=== PATIENT | female | born 1960 | race Caucasian/White ===

== ENCOUNTER → 2016-04-06 | Outpatient (CLI) | payer BC ==
[2016-04-06 13:28] LABS: EOS # 0.1 K/mm3 (0.0-0.50); EOS % 3.3 % (0.0-3.0); LARGE UNSTAINED CELL # 0.1 K/mm3 (0.0-0.4); LARGE UNSTAINED CELL % 2.9 % (0.0-4.0); LYMPH # 0.8 K/mm3 (1.5-4.5); LYMPH % 36.1 % (24.0-44.0); MEAN CORPUSCULAR HEMOGLOBIN 27.2 pg (27.0-33.0); MEAN CORPUSCULAR VOLUME 82.4 fl (80.0-96.0); MONO # 0.1 K/mm3 (0.0-0.8); MONO % 4.9 % (0.0-5.0); NEUTROPHILS # 1.1 K/mm3 (1.8-7.7); NEUTROPHILS % 51.8 % (36.0-66.0); PLATELET COUNT, AUTOMATED 153 k/mm3 (150-450); RED CELL DISTRIBUTION WIDTH 13.7 % (11.5-14.5)
[2016-04-06 13:51] LABS: ALBUMIN 3.8 GM/DL (3.2-5.2); CALCIUM LEVEL 8.6 MG/DL (8.5-10.1); CREATININE FOR GFR 1.23 MG/DL (0.55-1.02); GLOMERULAR FILTRATION RATE 48.3 (>51); PHOSPHORUS LEVEL 3.4 MG/DL (2.5-4.9); POTASSIUM SERUM 4.4 MEQ/L (3.5-5.1)
[2016-04-07 08:07] LABS: WHITE BLOOD COUNT 2.2 K/mm3 (4.0-10.0)
== END ==
LOC: M SMT 09:33
PROVIDERS: ATTEND Internal Medicine Nephrology
DX: Z94.0 Kidney transplant status (principal); N18.3 Chronic kidney disease, stage 3 (moderate)

== ENCOUNTER → 2016-06-01 | Outpatient (CLI) | payer BC ==
[2016-06-01 13:28] LABS: ALBUMIN 3.9 GM/DL (3.2-5.2); CALCIUM LEVEL 8.8 MG/DL (8.5-10.1); CREATININE FOR GFR 1.34 MG/DL (0.55-1.02); GLOMERULAR FILTRATION RATE 43.7 (>51); PHOSPHORUS LEVEL 3.8 MG/DL (2.5-4.9); POTASSIUM SERUM 4.8 MEQ/L (3.5-5.1)
[2016-06-01 14:16] LABS: BASO % 0.3 % (0.0-1.0); EOS # 0.1 K/mm3 (0.0-0.50); LARGE UNSTAINED CELL # 0.1 K/mm3 (0.0-0.4); LARGE UNSTAINED CELL % 4.7 % (0.0-4.0); LYMPH # 1.1 K/mm3 (1.5-4.5); LYMPH % 41.1 % (24.0-44.0); MEAN CORPUSCULAR HEMOGLOBIN 27.4 pg (27.0-33.0); MEAN CORPUSCULAR VOLUME 85.7 fl (80.0-96.0); MONO # 0.2 K/mm3 (0.0-0.8); MONO % 5.9 % (0.0-5.0); NEUTROPHILS # 1.1 K/mm3 (1.8-7.7); PLATELET COUNT, AUTOMATED 178 k/mm3 (150-450); RED CELL DISTRIBUTION WIDTH 12.9 % (11.5-14.5); WHITE BLOOD COUNT 2.5 K/mm3 (4.0-10.0)
== END ==
LOC: M SMT 09:17
PROVIDERS: ATTEND Internal Medicine Nephrology
DX: N18.3 Chronic kidney disease, stage 3 (moderate) (principal); Z94.0 Kidney transplant status

== ENCOUNTER → 2016-07-10 | Outpatient (CLI) | payer BC ==
[2016-07-10 14:41] LABS: ALBUMIN 3.9 GM/DL (3.2-5.2); CALCIUM LEVEL 8.3 MG/DL (8.5-10.1); CREATININE FOR GFR 1.48 MG/DL (0.55-1.02); PHOSPHORUS LEVEL 3.5 MG/DL (2.5-4.9); POTASSIUM SERUM 4.3 MEQ/L (3.5-5.1)
[2016-07-10 14:49] LABS: BASO % 0.2 % (0.0-1.0); EOS % 1.8 % (0.0-3.0); LARGE UNSTAINED CELL # 0.1 K/mm3 (0.0-0.4); LARGE UNSTAINED CELL % 2.7 % (0.0-4.0); LYMPH # 0.8 K/mm3 (1.5-4.5); LYMPH % 34.4 % (24.0-44.0); MEAN CORPUSCULAR HGB CONC 33.5 g/dl (32.0-36.5); MEAN CORPUSCULAR VOLUME 86.6 fl (80.0-96.0); MONO # 0.2 K/mm3 (0.0-0.8); MONO % 6.5 % (0.0-5.0); NEUTROPHILS # 1.2 K/mm3 (1.8-7.7); NEUTROPHILS % 54.5 % (36.0-66.0); PLATELET COUNT, AUTOMATED 146 k/mm3 (150-450); RED CELL DISTRIBUTION WIDTH 13.3 % (11.5-14.5); WHITE BLOOD COUNT 2.3 K/mm3 (4.0-10.0)
== END ==
LOC: M SMT 08:57
PROVIDERS: ATTEND Internal Medicine Nephrology
DX: N18.3 Chronic kidney disease, stage 3 (moderate) (principal); Z94.0 Kidney transplant status

== ENCOUNTER → 2016-09-07 | Outpatient (CLI) | payer BC ==
[2016-09-07 13:29] LABS: ADD MANUAL DIFFER YES; MEAN CORPUSCULAR HEMOGLOBIN 28.5 pg (27.0-33.0); MEAN CORPUSCULAR HGB CONC 33.3 g/dl (32.0-36.5); MEAN CORPUSCULAR VOLUME 85.6 fl (80.0-96.0); PLATELET COUNT, AUTOMATED 172 k/mm3 (150-450); RED CELL DISTRIBUTION WIDTH 12.8 % (11.5-14.5); WHITE BLOOD COUNT 5.1 K/mm3 (4.0-10.0)
[2016-09-07 13:31] LABS: ALBUMIN 3.9 GM/DL (3.2-5.2); CALCIUM LEVEL 8.8 MG/DL (8.5-10.1); CREATININE FOR GFR 1.27 MG/DL (0.55-1.02); GLOMERULAR FILTRATION RATE 46.5 (>51); PHOSPHORUS LEVEL 3.2 MG/DL (2.5-4.9); POTASSIUM SERUM 4.9 MEQ/L (3.5-5.1)
[2016-09-07 13:59] LABS: EOSINOPHILS 1 % (0-5)
== END ==
LOC: M SMT 09:38
PROVIDERS: ATTEND Internal Medicine Nephrology
DX: N18.3 Chronic kidney disease, stage 3 (moderate) (principal); Z94.0 Kidney transplant status

== ENCOUNTER → 2016-10-05 | Outpatient (CLI) | payer BC ==
[2016-10-05 14:27] LABS: ALBUMIN 3.7 GM/DL (3.2-5.2); CALCIUM LEVEL 8.6 MG/DL (8.5-10.1); CREATININE FOR GFR 1.36 MG/DL (0.55-1.02); PHOSPHORUS LEVEL 3.6 MG/DL (2.5-4.9); POTASSIUM SERUM 4.9 MEQ/L (3.5-5.1)
[2016-10-05 14:32] LABS: ADD MANUAL DIFFER YES; DIFF SLIDE NUMBER 154; MEAN CORPUSCULAR HEMOGLOBIN 28.1 pg (27.0-33.0); MEAN CORPUSCULAR VOLUME 85.1 fl (80.0-96.0); PLATELET COUNT, AUTOMATED 183 k/mm3 (150-450); RED CELL DISTRIBUTION WIDTH 12.9 % (11.5-14.5); WHITE BLOOD COUNT 2.6 K/mm3 (4.0-10.0)
[2016-10-05 14:56] LABS: EOSINOPHILS 3 % (0-5)
== END ==
LOC: M SMT 09:48
PROVIDERS: ATTEND Internal Medicine Nephrology
DX: N18.3 Chronic kidney disease, stage 3 (moderate) (principal); Z94.0 Kidney transplant status

== ENCOUNTER → 2016-11-30 | Outpatient (CLI) | payer BC ==
[2016-11-30 16:28] LABS: ALBUMIN 3.7 GM/DL (3.2-5.2); CALCIUM LEVEL 8.6 MG/DL (8.5-10.1); CREATININE FOR GFR 1.29 MG/DL (0.55-1.02); GLOMERULAR FILTRATION RATE 45.7 (>51); PHOSPHORUS LEVEL 2.9 MG/DL (2.5-4.9)
[2016-11-30 16:40] LABS: BASO % 0.7 % (0.0-1.0); EOS # 0.1 K/mm3 (0.0-0.50); EOS % 3.1 % (0.0-3.0); LARGE UNSTAINED CELL # 0.1 K/mm3 (0.0-0.4); LARGE UNSTAINED CELL % 4.3 % (0.0-4.0); LYMPH # 0.9 K/mm3 (1.5-4.5); LYMPH % 38.8 % (24.0-44.0); MEAN CORPUSCULAR HEMOGLOBIN 28.7 pg (27.0-33.0); MEAN CORPUSCULAR HGB CONC 33.8 g/dl (32.0-36.5); MONO # 0.1 K/mm3 (0.0-0.8); MONO % 6.2 % (0.0-5.0); NEUTROPHILS # 1.1 K/mm3 (1.8-7.7); NEUTROPHILS % 46.9 % (36.0-66.0); PLATELET COUNT, AUTOMATED 174 k/mm3 (150-450); RED CELL DISTRIBUTION WIDTH 13.1 % (11.5-14.5); WHITE BLOOD COUNT 2.2 K/mm3 (4.0-10.0)
== END ==
LOC: M SMT 10:03
PROVIDERS: ATTEND Internal Medicine Nephrology
DX: N18.3 Chronic kidney disease, stage 3 (moderate) (principal); Z94.0 Kidney transplant status

== ENCOUNTER → 2017-01-25 | Outpatient (REF) | payer BC ==
[2017-01-25 19:45] LABS: FREE T4 0.97 NG/DL (0.76-1.46)
== END ==
LOC: M LAB REF 12:46
PROVIDERS: ATTEND Internal Medicine Nephrology
DX: Z94.0 Kidney transplant status (principal); E03.9 Hypothyroidism, unspecified

== ENCOUNTER → 2017-03-22 | Outpatient (CLI) | payer BC ==
[2017-03-22 14:00] LABS: BASO % 0.6 % (0.0-1.0); EOS # 0.1 10^3/uL (0.0-0.50); EOS % 2.3 % (0.0-3.0); HEMATOCRIT 36.9 % (36.0-47.0); HEMOGLOBIN 11.9 g/dl (12.0-16.0); IMMATURE GRANULOCYTE % 0.3 % (0-0); LYMPH # 1.8 10^3/uL (1.5-4.5); LYMPH % 52.9 % (24.0-44.0); MEAN CORPUSCULAR HEMOGLOBIN 27.7 pg (27.0-33.0); MEAN CORPUSCULAR HGB CONC 32.2 g/dl (32.0-36.5); MONO # 0.3 10^3/uL (0.0-0.8); MONO % 7.8 % (0.0-5.0); NEUTROPHILS # 1.2 10^3/uL (1.8-7.7); NEUTROPHILS % 36.1 % (36.0-66.0); PLATELET COUNT, AUTOMATED 186 10^3/uL (150-450); RED BLOOD COUNT 4.29 10^6/uL (4.00-5.40); WHITE BLOOD COUNT 3.4 10^3/uL (4.0-10.0)
[2017-03-22 14:08] LABS: APPEARANCE, URINE CLEAR (CLEAR); BACTERIA, URINE AUTO NEGATIVE (NEGATIVE); BILIRUBIN, URINE AUTO NEGATIVE (NEGATIVE); BLOOD, URINE BLOOD NEGATIVE (NEGATIVE); COLOR, URINE YELLOW (YELLOW); GLUCOSE, URINE (UA) AUTO NEGATIVE (NEGATIVE); KETONE, URINE AUTO NEGATIVE (NEGATIVE); LEUKOCYTE ESTERASE, URINE AUTO NEGATIVE (NEGATIVE); NITRITE, URINE AUTO NEGATIVE (NEGATIVE); PROTEIN, URINE AUTO NEGATIVE (NEGATIVE); RBC, URINE AUTO 1 /HPF (0-3); SPECIFIC GRAVITY URINE AUTO 1.017 (1.002-1.035); SQUAMOUS EPITHELIAL CELL UR AU 0 /HPF (0-6); UROBILINOGEN, URINE AUTO 0.2 mg/dL (0.0-2.0); WBC, URINE AUTO 0 /HPF (0-3)
[2017-03-22 14:21] LABS: ALBUMIN 3.8 GM/DL (3.2-5.2); ANION GAP 9 MEQ/L (8-16); BLOOD UREA NITROGEN 31 MG/DL (7-18); CALCIUM LEVEL 8.7 MG/DL (8.5-10.1); CARBON DIOXIDE LEVEL 27 MEQ/L (21-32); CHLORIDE LEVEL 104 MEQ/L (98-107); CREATININE FOR GFR 1.39 MG/DL (0.55-1.02); GLOMERULAR FILTRATION RATE 41.8 (>51); GLUCOSE, FASTING 102 MG/DL (70-105); PHOSPHORUS LEVEL 3.5 MG/DL (2.5-4.9); POTASSIUM SERUM 4.8 MEQ/L (3.5-5.1); SODIUM LEVEL 140 MEQ/L (136-145)
[2017-03-24 10:12] LABS: FK 506 (TACROLIMUS) LABCORP 6.5 ng/mL (2.0-20.0)
== END ==
LOC: M SMT 09:07
DX: Z94.0 Kidney transplant status (principal); N18.3 Chronic kidney disease, stage 3 (moderate)
CPT/HCPCS: 80069

== ENCOUNTER → 2017-04-26 | Outpatient (REF) | payer BC | LOC: M LAB REF 13:15 | DX: Z94.0 Kidney transplant status (principal) ==

== ENCOUNTER → 2017-05-31 | Outpatient (CLI) | payer BC ==
[2017-05-31 17:15] LABS: ALBUMIN 3.6 GM/DL (3.2-5.2); ANION GAP 7 MEQ/L (8-16); BLOOD UREA NITROGEN 25 MG/DL (7-18); CALCIUM LEVEL 8.2 MG/DL (8.5-10.1); CARBON DIOXIDE LEVEL 28 MEQ/L (21-32); CHLORIDE LEVEL 104 MEQ/L (98-107); CREATININE FOR GFR 1.27 MG/DL (0.55-1.30); GLOMERULAR FILTRATION RATE 46.3 (>51); GLUCOSE, FASTING 96 MG/DL (70-100); PHOSPHORUS LEVEL 2.9 MG/DL (2.5-4.9); POTASSIUM SERUM 4.3 MEQ/L (3.5-5.1); SODIUM LEVEL 139 MEQ/L (136-145)
[2017-05-31 17:17] LABS: BASO % 1.1 % (0.0-1.0); EOS # 0.1 10^3/uL (0.0-0.50); EOS % 2.8 % (0.0-3.0); HEMATOCRIT 36.6 % (36.0-47.0); HEMOGLOBIN 11.4 g/dl (12.0-16.0); IMMATURE GRANULOCYTE % 0.4 % (0-3.0); LYMPH # 0.9 10^3/uL (1.5-4.5); LYMPH % 32.9 % (24.0-44.0); MEAN CORPUSCULAR HEMOGLOBIN 26.6 pg (27.0-33.0); MEAN CORPUSCULAR HGB CONC 31.1 g/dl (32.0-36.5); MEAN CORPUSCULAR VOLUME 85.5 fl (80.0-96.0); MONO # 0.2 10^3/uL (0.0-0.8); MONO % 6.7 % (0.0-5.0); NEUTROPHILS # 1.6 10^3/uL (1.8-7.7); NEUTROPHILS % 56.1 % (36.0-66.0); PLATELET COUNT, AUTOMATED 197 10^3/uL (150-450); RED BLOOD COUNT 4.28 10^6/uL (4.00-5.40); RED CELL DISTRIBUTION WIDTH 13.4 % (11.5-14.5); WHITE BLOOD COUNT 2.8 10^3/uL (4.0-10.0)
[2017-05-31 17:33] LABS: APPEARANCE, URINE CLEAR (CLEAR); BACTERIA, URINE AUTO NEGATIVE (NEGATIVE); BILIRUBIN, URINE AUTO NEGATIVE (NEGATIVE); BLOOD, URINE BLOOD NEGATIVE (NEGATIVE); COLOR, URINE STRAW (YELLOW); GLUCOSE, URINE (UA) AUTO NEGATIVE (NEGATIVE); KETONE, URINE AUTO NEGATIVE (NEGATIVE); LEUKOCYTE ESTERASE, URINE AUTO NEGATIVE (NEGATIVE); NITRITE, URINE AUTO NEGATIVE (NEGATIVE); PROTEIN, URINE AUTO NEGATIVE (NEGATIVE); RBC, URINE AUTO 0 /HPF (0-3); SPECIFIC GRAVITY URINE AUTO 1.004 (1.002-1.035); SQUAMOUS EPITHELIAL CELL UR AU 0 /HPF (0-6); UROBILINOGEN, URINE AUTO 0.2 mg/dL (0.0-2.0); WBC, URINE AUTO 0 /HPF (0-3)
[2017-06-03 08:06] LABS: FK 506 (TACROLIMUS) LABCORP 4.8 ng/mL (2.0-20.0)
== END ==
LOC: M SMT 09:05
DX: N18.3 Chronic kidney disease, stage 3 (moderate) (principal); Z94.0 Kidney transplant status
CPT/HCPCS: 80069

== ENCOUNTER → 2017-07-30 | Outpatient (CLI) | payer BC ==
[2017-07-30 14:04] LABS: BASO % 1.1 % (0.0-1.0); EOS # 0.1 10^3/uL (0.0-0.50); EOS % 2.2 % (0.0-3.0); HEMATOCRIT 36.4 % (36.0-47.0); HEMOGLOBIN 11.6 g/dl (12.0-15.5); LYMPH # 0.9 10^3/uL (1.5-4.5); LYMPH % 33.5 % (24.0-44.0); MEAN CORPUSCULAR HEMOGLOBIN 27.2 pg (27.0-33.0); MEAN CORPUSCULAR HGB CONC 31.9 g/dl (32.0-36.5); MEAN CORPUSCULAR VOLUME 85.2 fl (80.0-96.0); MONO # 0.2 10^3/uL (0.0-0.8); MONO % 8.6 % (0.0-5.0); NEUTROPHILS # 1.5 10^3/uL (1.8-7.7); NEUTROPHILS % 54.6 % (36.0-66.0); PLATELET COUNT, AUTOMATED 170 10^3/uL (150-450); RED BLOOD COUNT 4.27 10^6/uL (4.00-5.40); RED CELL DISTRIBUTION WIDTH 13.1 % (11.5-14.5); WHITE BLOOD COUNT 2.7 10^3/uL (4.0-10.0)
[2017-07-30 14:34] LABS: APPEARANCE, URINE CLEAR (CLEAR); BACTERIA, URINE AUTO NEGATIVE (NEGATIVE); BILIRUBIN, URINE AUTO NEGATIVE (NEGATIVE); BLOOD, URINE BLOOD NEGATIVE (NEGATIVE); COLOR, URINE YELLOW (YELLOW); GLUCOSE, URINE (UA) AUTO NEGATIVE (NEGATIVE); KETONE, URINE AUTO NEGATIVE (NEGATIVE); LEUKOCYTE ESTERASE, URINE AUTO NEGATIVE (NEGATIVE); MUCUS, URINE SMALL (NEGATIVE); NITRITE, URINE AUTO NEGATIVE (NEGATIVE); PROTEIN, URINE AUTO NEGATIVE (NEGATIVE); RBC, URINE AUTO 1 /HPF (0-3); SPECIFIC GRAVITY URINE AUTO 1.011 (1.002-1.035); SQUAMOUS EPITHELIAL CELL UR AU 0 /HPF (0-6); UROBILINOGEN, URINE AUTO 0.2 mg/dL (0.0-2.0); WBC, URINE AUTO 0 /HPF (0-3)
[2017-07-30 14:49] LABS: ALBUMIN 3.8 GM/DL (3.2-5.2); ANION GAP 8 MEQ/L (8-16); BLOOD UREA NITROGEN 27 MG/DL (7-18); CALCIUM LEVEL 8.4 MG/DL (8.5-10.1); CARBON DIOXIDE LEVEL 27 MEQ/L (21-32); CHLORIDE LEVEL 104 MEQ/L (98-107); CREATININE FOR GFR 1.39 MG/DL (0.55-1.30); GLOMERULAR FILTRATION RATE 41.8 (>51); GLUCOSE, FASTING 105 MG/DL (70-100); PHOSPHORUS LEVEL 3.4 MG/DL (2.5-4.9); POTASSIUM SERUM 4.4 MEQ/L (3.5-5.1); SODIUM LEVEL 139 MEQ/L (136-145)
[2017-08-01 08:06] LABS: FK 506 (TACROLIMUS) LABCORP 6.1 ng/mL (2.0-20.0)
== END ==
LOC: M SMT 09:05
DX: Z94.0 Kidney transplant status (principal); D63.1 Anemia in chronic kidney disease
CPT/HCPCS: 80069

== ENCOUNTER → 2017-09-17 | Outpatient (CLI) | payer BC ==
[2017-09-17 13:22] LABS: BASO % 1.1 % (0.0-1.0); EOS # 0.1 10^3/uL (0.0-0.50); EOS % 2.7 % (0.0-3.0); HEMATOCRIT 35.3 % (36.0-47.0); HEMOGLOBIN 11.5 g/dl (12.0-15.5); LYMPH # 0.9 10^3/uL (1.5-4.5); LYMPH % 33.3 % (24.0-44.0); MEAN CORPUSCULAR HEMOGLOBIN 27.3 pg (27.0-33.0); MEAN CORPUSCULAR HGB CONC 32.6 g/dl (32.0-36.5); MEAN CORPUSCULAR VOLUME 83.6 fl (80.0-96.0); MONO # 0.2 10^3/uL (0.0-0.8); MONO % 7.7 % (0.0-5.0); NEUTROPHILS # 1.4 10^3/uL (1.8-7.7); NEUTROPHILS % 55.2 % (36.0-66.0); PLATELET COUNT, AUTOMATED 182 10^3/uL (150-450); RED BLOOD COUNT 4.22 10^6/uL (4.00-5.40); RED CELL DISTRIBUTION WIDTH 13.2 % (11.5-14.5); WHITE BLOOD COUNT 2.6 10^3/uL (4.0-10.0)
[2017-09-17 13:32] LABS: APPEARANCE, URINE CLEAR (CLEAR); BACTERIA, URINE AUTO NEGATIVE (NEGATIVE); BILIRUBIN, URINE AUTO NEGATIVE (NEGATIVE); BLOOD, URINE BLOOD NEGATIVE (NEGATIVE); COLOR, URINE YELLOW (YELLOW); GLUCOSE, URINE (UA) AUTO NEGATIVE (NEGATIVE); KETONE, URINE AUTO NEGATIVE (NEGATIVE); LEUKOCYTE ESTERASE, URINE AUTO NEGATIVE (NEGATIVE); NITRITE, URINE AUTO NEGATIVE (NEGATIVE); PROTEIN, URINE AUTO NEGATIVE (NEGATIVE); RBC, URINE AUTO 0 /HPF (0-3); SPECIFIC GRAVITY URINE AUTO 1.009 (1.002-1.035); SQUAMOUS EPITHELIAL CELL UR AU 0 /HPF (0-6); UROBILINOGEN, URINE AUTO 0.2 mg/dL (0.0-2.0); WBC, URINE AUTO 0 /HPF (0-3)
[2017-09-17 13:35] LABS: ALBUMIN 3.8 GM/DL (3.2-5.2); ANION GAP 8 MEQ/L (8-16); BLOOD UREA NITROGEN 31 MG/DL (7-18); CALCIUM LEVEL 8.6 MG/DL (8.5-10.1); CARBON DIOXIDE LEVEL 27 MEQ/L (21-32); CHLORIDE LEVEL 107 MEQ/L (98-107); CREATININE FOR GFR 1.44 MG/DL (0.55-1.30); GLOMERULAR FILTRATION RATE 40.1 (>51); GLUCOSE, FASTING 111 MG/DL (70-100); PHOSPHORUS LEVEL 3.9 MG/DL (2.5-4.9); POTASSIUM SERUM 4.8 MEQ/L (3.5-5.1); SODIUM LEVEL 142 MEQ/L (136-145)
[2017-09-20 00:09] LABS: FK 506 (TACROLIMUS) LABCORP 5.6 ng/mL (2.0-20.0)
== END ==
LOC: M SMT 08:17
DX: Z94.0 Kidney transplant status (principal); D63.1 Anemia in chronic kidney disease
CPT/HCPCS: 80069

== ENCOUNTER → 2018-01-10 | Outpatient (REF) | payer BC ==
[2018-01-10 13:43] LABS: BASO % 0.7 % (0.0-1.0); EOS # 0.1 10^3/uL (0.0-0.50); EOS % 3.4 % (0.0-3.0); HEMATOCRIT 37.2 % (36.0-47.0); HEMOGLOBIN 11.7 g/dl (12.0-15.5); IMMATURE GRANULOCYTE % 0.3 % (0-3.0); LYMPH # 1.3 10^3/uL (1.5-4.5); LYMPH % 43.7 % (24.0-44.0); MEAN CORPUSCULAR HEMOGLOBIN 27.2 pg (27.0-33.0); MEAN CORPUSCULAR HGB CONC 31.5 g/dl (32.0-36.5); MEAN CORPUSCULAR VOLUME 86.5 fl (80.0-96.0); MONO # 0.2 10^3/uL (0.0-0.8); MONO % 7.5 % (0.0-5.0); NEUTROPHILS # 1.3 10^3/uL (1.8-7.7); NEUTROPHILS % 44.4 % (36.0-66.0); PLATELET COUNT, AUTOMATED 180 10^3/uL (150-450); RED CELL DISTRIBUTION WIDTH 13.1 % (11.5-14.5)
[2018-01-10 13:50] LABS: ALBUMIN 3.6 GM/DL (3.2-5.2); ANION GAP 6 MEQ/L (8-16); APPEARANCE, URINE CLEAR (CLEAR); BACTERIA, URINE AUTO NEGATIVE (NEGATIVE); BILIRUBIN, URINE AUTO NEGATIVE (NEGATIVE); BLOOD UREA NITROGEN 22 MG/DL (7-18); BLOOD, URINE BLOOD NEGATIVE (NEGATIVE); CALCIUM LEVEL 8.4 MG/DL (8.5-10.1); CARBON DIOXIDE LEVEL 29 MEQ/L (21-32); CHLORIDE LEVEL 103 MEQ/L (98-107); COLOR, URINE YELLOW (YELLOW); CREATININE FOR GFR 1.46 MG/DL (0.55-1.30); GLOMERULAR FILTRATION RATE 39.5 (>51); GLUCOSE, FASTING 137 MG/DL (70-100); GLUCOSE, URINE (UA) AUTO NEGATIVE (NEGATIVE); KETONE, URINE AUTO NEGATIVE (NEGATIVE); LEUKOCYTE ESTERASE, URINE AUTO NEGATIVE (NEGATIVE); NITRITE, URINE AUTO NEGATIVE (NEGATIVE); PHOSPHORUS LEVEL 3.2 MG/DL (2.5-4.9); POTASSIUM SERUM 4.5 MEQ/L (3.5-5.1); PROTEIN, URINE AUTO NEGATIVE (NEGATIVE); RBC, URINE AUTO 0 /HPF (0-3); SODIUM LEVEL 138 MEQ/L (136-145); SPECIFIC GRAVITY URINE AUTO 1.011 (1.002-1.035); SQUAMOUS EPITHELIAL CELL UR AU 0 /HPF (0-6); UROBILINOGEN, URINE AUTO 0.2 mg/dL (0.0-2.0); WBC, URINE AUTO 0 /HPF (0-3)
[2018-01-12 14:32] LABS: FK 506 (TACROLIMUS) LABCORP 7.1 ng/mL (2.0-20.0)
== END ==
LOC: M LAB REF 13:17
DX: Z94.0 Kidney transplant status (principal); Z48.22 Encounter for aftercare following kidney transplant
CPT/HCPCS: 80069

== ENCOUNTER → 2018-02-14 | Outpatient (CLI) | payer BC ==
[2018-02-14 14:30] LABS: BACTERIA, URINE AUTO NEGATIVE (NEGATIVE); MUCUS, URINE SMALL (NEGATIVE); RBC, URINE AUTO 0 /HPF (0-3); SQUAMOUS EPITHELIAL CELL UR AU 0 /HPF (0-6); WBC, URINE AUTO 0 /HPF (0-3)
[2018-02-14 14:34] LABS: BASO % 1.3 % (0.0-1.0); EOS # 0.1 10^3/uL (0.0-0.50); EOS % 3.4 % (0.0-3.0); HEMATOCRIT 36.8 % (36.0-47.0); HEMOGLOBIN 11.7 g/dl (12.0-15.5); LYMPH # 0.9 10^3/uL (1.5-4.5); MEAN CORPUSCULAR HEMOGLOBIN 27.2 pg (27.0-33.0); MEAN CORPUSCULAR HGB CONC 31.8 g/dl (32.0-36.5); MEAN CORPUSCULAR VOLUME 85.6 fl (80.0-96.0); MONO # 0.2 10^3/uL (0.0-0.8); MONO % 8.4 % (0.0-5.0); NEUTROPHILS # 1.2 10^3/uL (1.8-7.7); NEUTROPHILS % 49.9 % (36.0-66.0); PLATELET COUNT, AUTOMATED 193 10^3/uL (150-450); RED CELL DISTRIBUTION WIDTH 13.2 % (11.5-14.5); WHITE BLOOD COUNT 2.4 10^3/uL (4.0-10.0)
[2018-02-14 14:42] LABS: APPEARANCE, URINE CLEAR (CLEAR); BILIRUBIN, URINE AUTO NEGATIVE (NEGATIVE); BLOOD, URINE BLOOD NEGATIVE (NEGATIVE); COLOR, URINE YELLOW (YELLOW); GLUCOSE, URINE (UA) AUTO NEGATIVE (NEGATIVE); KETONE, URINE AUTO NEGATIVE (NEGATIVE); LEUKOCYTE ESTERASE, URINE AUTO NEGATIVE (NEGATIVE); NITRITE, URINE AUTO NEGATIVE (NEGATIVE); PROTEIN, URINE AUTO NEGATIVE (NEGATIVE); SPECIFIC GRAVITY URINE AUTO 1.011 (1.002-1.035); UROBILINOGEN, URINE AUTO 0.2 mg/dL (0.0-2.0)
[2018-02-15 09:41] LABS: ALBUMIN 3.9 GM/DL (3.2-5.2); ALBUMIN/GLOBULIN RATIO 1.39 (1.00-1.93); ALKALINE PHOSPHATASE 54 U/L (45-117); ALT/SGPT 21 U/L (12-78); ANION GAP 8 MEQ/L (8-16); AST/SGOT 16 U/L (7-37); BILIRUBIN,TOTAL 0.4 MG/DL (0.2-1.0); BLOOD UREA NITROGEN 26 MG/DL (7-18); CALCIUM LEVEL 8.7 MG/DL (8.5-10.1); CARBON DIOXIDE LEVEL 27 MEQ/L (21-32); CHLORIDE LEVEL 101 MEQ/L (98-107); FERRITIN 49 NG/ML (8-252); FREE T4 1.02 NG/DL (0.76-1.46); GLOMERULAR FILTRATION RATE 41.4 (>51); GLUCOSE, FASTING 106 MG/DL (70-100); IRON (FE) 58 UG/DL (50-170); PERCENT SATURATION 23.2 % (13.2-45.0); PHOSPHORUS LEVEL 3.5 MG/DL (2.5-4.9); POTASSIUM SERUM 4.7 MEQ/L (3.5-5.1); SODIUM LEVEL 136 MEQ/L (136-145); TOTAL IRON BINDING CAPACITY 250 UG/DL (250-450); TOTAL PROTEIN 6.7 GM/DL (6.4-8.2)
[2018-02-15 10:18] LABS: CORTISOL AM 16.1 UG/DL (4.3-22.4)
[2018-02-23 00:07] LABS: BK VIRUS BLOOD PCR1 Negative copies/mL (Negative); CMV QUANT DNA PCR (PLASMA) Negative (Negative); FK 506 (TACROLIMUS) LABCORP 8.2 ng/mL (2.0-20.0)
== END ==
LOC: M SMT 08:00
DX: Z48.22 Encounter for aftercare following kidney transplant (principal); Z94.0 Kidney transplant status; D50.9 Iron deficiency anemia, unspecified
CPT/HCPCS: 83550

== ENCOUNTER → 2018-02-14 | Outpatient (CLI) | payer BC ==
[2018-02-14 14:45] LABS: ALBUMIN 3.6 GM/DL (3.2-5.2); ALBUMIN/GLOBULIN RATIO 1.24 (1.00-1.93); ALKALINE PHOSPHATASE 56 U/L (45-117); ALT/SGPT 24 U/L (12-78); ANION GAP 5 MEQ/L (8-16); AST/SGOT 15 U/L (7-37); BILIRUBIN,TOTAL 0.4 MG/DL (0.2-1.0); BLOOD UREA NITROGEN 24 MG/DL (7-18); CALCIUM LEVEL 8.2 MG/DL (8.5-10.1); CARBON DIOXIDE LEVEL 30 MEQ/L (21-32); CHLORIDE LEVEL 102 MEQ/L (98-107); CHOLESTEROL LEVEL 264 MG/DL (<200); FREE T4 1.02 NG/DL (0.76-1.46); GLOMERULAR FILTRATION RATE 41.4 (>51); GLUCOSE, FASTING 101 MG/DL (70-100); HDL CHOLESTEROL 63 MG/DL (>40); IRON (FE) 58 UG/DL (50-170); LDL CHOLESTEROL 176 MG/DL (<100); NON-HDL-C 201 MG/DL; PERCENT SATURATION 24.2 % (13.2-45.0); POTASSIUM SERUM 4.7 MEQ/L (3.5-5.1); SODIUM LEVEL 137 MEQ/L (136-145); TOTAL IRON BINDING CAPACITY 240 UG/DL (250-450); TOTAL PROTEIN 6.5 GM/DL (6.4-8.2); TRIGLYCERIDES LEVEL 125 MG/DL (<150)
[2018-02-15 10:19] LABS: TOTAL 25(OH) VITAMIN D 31.1 NG/ML (30.0-100.0)
[2018-02-15 10:32] LABS: BASO % 1.3 % (0.0-1.0); EOS % 3.4 % (0.0-3.0); HEMATOCRIT 36.8 % (36.0-47.0); HEMOGLOBIN 11.7 g/dl (12.0-15.5); MEAN CORPUSCULAR HEMOGLOBIN 27.2 pg (27.0-33.0); MEAN CORPUSCULAR HGB CONC 31.8 g/dl (32.0-36.5); MEAN CORPUSCULAR VOLUME 85.6 fl (80.0-96.0); MONO % 8.4 % (0.0-5.0); NEUTROPHILS % 49.9 % (36.0-66.0); PLATELET COUNT, AUTOMATED 193 10^3/uL (150-450); RED CELL DISTRIBUTION WIDTH 13.2 % (11.5-14.5); WHITE BLOOD COUNT 2.4 10^3/uL (4.0-10.0)
[2018-02-15 10:33] LABS: EOS # 0.1 10^3/uL (0.0-0.50); LYMPH # 0.9 10^3/uL (1.5-4.5); MONO # 0.2 10^3/uL (0.0-0.8); NEUTROPHILS # 1.2 10^3/uL (1.8-7.7)
== END ==
LOC: M SMT 08:05
DX: Z01.419 Encounter for gynecological examination (general) (routine) without abnormal findings (principal)
CPT/HCPCS: 82306

== ENCOUNTER → 2018-03-14 | Outpatient (REF) | payer BC | LOC: M LAB REF 10:01 | PROVIDERS: ATTEND Internal Medicine Nephrology | DX: Z94.0 Kidney transplant status (principal) ==

== ENCOUNTER → 2018-04-02 | Outpatient (CLI) | payer BC ==
[2018-04-02 10:58] LABS: BASO % 1.3 % (0.0-1.0); EOS # 0.1 10^3/uL (0.0-0.50); EOS % 4.2 % (0.0-3.0); HEMATOCRIT 36.4 % (36.0-47.0); HEMOGLOBIN 11.5 g/dl (12.0-15.5); LYMPH # 0.8 10^3/uL (1.5-4.5); LYMPH % 33.9 % (24.0-44.0); MEAN CORPUSCULAR HEMOGLOBIN 27.1 pg (27.0-33.0); MEAN CORPUSCULAR HGB CONC 31.6 g/dl (32.0-36.5); MEAN CORPUSCULAR VOLUME 85.6 fl (80.0-96.0); MONO # 0.2 10^3/uL (0.0-0.8); MONO % 10.2 % (0.0-5.0); NEUTROPHILS # 1.2 10^3/uL (1.8-7.7); NEUTROPHILS % 50.4 % (36.0-66.0); PLATELET COUNT, AUTOMATED 164 10^3/uL (150-450); RED BLOOD COUNT 4.25 10^6/uL (4.00-5.40); WHITE BLOOD COUNT 2.4 10^3/uL (4.0-10.0)
[2018-04-02 11:03] LABS: ALBUMIN 3.8 GM/DL (3.2-5.2); CALCIUM LEVEL 8.3 MG/DL (8.5-10.1); CREATININE FOR GFR 1.31 MG/DL (0.55-1.30); GLOMERULAR FILTRATION RATE 44.6 (>51); PHOSPHORUS LEVEL 3.3 MG/DL (2.5-4.9); POTASSIUM SERUM 4.5 MEQ/L (3.5-5.1)
[2018-04-02 11:14] LABS: APPEARANCE, URINE CLEAR (CLEAR); BACTERIA, URINE AUTO NEGATIVE (NEGATIVE); BILIRUBIN, URINE AUTO NEGATIVE (NEGATIVE); BLOOD, URINE BLOOD NEGATIVE (NEGATIVE); COLOR, URINE YELLOW (YELLOW); GLUCOSE, URINE (UA) AUTO NEGATIVE (NEGATIVE); KETONE, URINE AUTO NEGATIVE (NEGATIVE); LEUKOCYTE ESTERASE, URINE AUTO NEGATIVE (NEGATIVE); MUCUS, URINE SMALL (NEGATIVE); NITRITE, URINE AUTO NEGATIVE (NEGATIVE); PROTEIN, URINE AUTO NEGATIVE (NEGATIVE); RBC, URINE AUTO 0 /HPF (0-3); SPECIFIC GRAVITY URINE AUTO 1.009 (1.002-1.035); SQUAMOUS EPITHELIAL CELL UR AU 0 /HPF (0-6); UROBILINOGEN, URINE AUTO 0.2 mg/dL (0.0-2.0); WBC, URINE AUTO 1 /HPF (0-3)
== END ==
LOC: M SMT 08:27
PROVIDERS: ATTEND Internal Medicine Nephrology
DX: Z94.0 Kidney transplant status (principal)

== ENCOUNTER → 2018-05-09 | Outpatient (CLI) | payer BC ==
[2018-05-09 13:35] LABS: BASO % 1.1 % (0.0-1.0); EOS # 0.2 10^3/uL (0.0-0.50); EOS % 8.6 % (0.0-3.0); HEMATOCRIT 36.1 % (36.0-47.0); HEMOGLOBIN 11.6 g/dl (12.0-15.5); MEAN CORPUSCULAR HEMOGLOBIN 27.4 pg (27.0-33.0); MEAN CORPUSCULAR HGB CONC 32.1 g/dl (32.0-36.5); MEAN CORPUSCULAR VOLUME 85.1 fl (80.0-96.0); MONO # 0.2 10^3/uL (0.0-0.8); MONO % 8.6 % (0.0-5.0); NEUTROPHILS # 1.1 10^3/uL (1.8-7.7); NEUTROPHILS % 42.7 % (36.0-66.0); PLATELET COUNT, AUTOMATED 180 10^3/uL (150-450); RED BLOOD COUNT 4.24 10^6/uL (4.00-5.40); WHITE BLOOD COUNT 2.7 10^3/uL (4.0-10.0)
[2018-05-09 13:41] LABS: APPEARANCE, URINE CLEAR (CLEAR); BACTERIA, URINE AUTO NEGATIVE (NEGATIVE); BILIRUBIN, URINE AUTO NEGATIVE (NEGATIVE); BLOOD, URINE BLOOD NEGATIVE (NEGATIVE); COLOR, URINE STRAW (YELLOW); GLUCOSE, URINE (UA) AUTO NEGATIVE (NEGATIVE); KETONE, URINE AUTO NEGATIVE (NEGATIVE); LEUKOCYTE ESTERASE, URINE AUTO NEGATIVE (NEGATIVE); NITRITE, URINE AUTO NEGATIVE (NEGATIVE); PROTEIN, URINE AUTO NEGATIVE (NEGATIVE); RBC, URINE AUTO 0 /HPF (0-3); SPECIFIC GRAVITY URINE AUTO 1.005 (1.002-1.035); SQUAMOUS EPITHELIAL CELL UR AU 0 /HPF (0-6); UROBILINOGEN, URINE AUTO 0.2 mg/dL (0.0-2.0); WBC, URINE AUTO 0 /HPF (0-3)
[2018-05-09 13:47] LABS: ALBUMIN 3.8 GM/DL (3.2-5.2); CALCIUM LEVEL 8.6 MG/DL (8.5-10.1); CREATININE FOR GFR 1.27 MG/DL (0.55-1.30); GLOMERULAR FILTRATION RATE 46.2 (>51); PHOSPHORUS LEVEL 3.6 MG/DL (2.5-4.9); POTASSIUM SERUM 4.4 MEQ/L (3.5-5.1)
== END ==
LOC: M SMT 08:35
PROVIDERS: ATTEND Internal Medicine Nephrology
DX: Z94.0 Kidney transplant status (principal)

== ENCOUNTER → 2018-06-07 | Outpatient (CLI) | payer BC ==
[2018-06-07 10:52] LABS: BASO % 0.9 % (0.0-1.0); EOS # 0.1 10^3/uL (0.0-0.50); EOS % 3.1 % (0.0-3.0); HEMATOCRIT 35.5 % (36.0-47.0); HEMOGLOBIN 11.5 g/dl (12.0-15.5); LYMPH # 1.2 10^3/uL (1.5-4.5); LYMPH % 37.6 % (24.0-44.0); MEAN CORPUSCULAR HEMOGLOBIN 26.9 pg (27.0-33.0); MEAN CORPUSCULAR HGB CONC 32.4 g/dl (32.0-36.5); MEAN CORPUSCULAR VOLUME 83.1 fl (80.0-96.0); MONO # 0.3 10^3/uL (0.0-0.8); MONO % 8.3 % (0.0-5.0); NEUTROPHILS # 1.6 10^3/uL (1.8-7.7); NEUTROPHILS % 49.8 % (36.0-66.0); PLATELET COUNT, AUTOMATED 214 10^3/uL (150-450); RED BLOOD COUNT 4.27 10^6/uL (4.00-5.40); WHITE BLOOD COUNT 3.3 10^3/uL (4.0-10.0)
[2018-06-07 10:58] LABS: APPEARANCE, URINE CLEAR (CLEAR); BACTERIA, URINE AUTO NEGATIVE (NEGATIVE); BILIRUBIN, URINE AUTO NEGATIVE (NEGATIVE); BLOOD, URINE BLOOD NEGATIVE (NEGATIVE); COLOR, URINE YELLOW (YELLOW); GLUCOSE, URINE (UA) AUTO NEGATIVE (NEGATIVE); KETONE, URINE AUTO NEGATIVE (NEGATIVE); LEUKOCYTE ESTERASE, URINE AUTO NEGATIVE (NEGATIVE); NITRITE, URINE AUTO NEGATIVE (NEGATIVE); PROTEIN, URINE AUTO NEGATIVE (NEGATIVE); RBC, URINE AUTO 0 /HPF (0-3); SPECIFIC GRAVITY URINE AUTO 1.012 (1.002-1.035); SQUAMOUS EPITHELIAL CELL UR AU 0 /HPF (0-6); UROBILINOGEN, URINE AUTO 0.2 mg/dL (0.0-2.0); WBC, URINE AUTO 0 /HPF (0-3)
[2018-06-07 11:19] LABS: ALBUMIN 3.7 GM/DL (3.2-5.2); CALCIUM LEVEL 8.8 MG/DL (8.5-10.1); CREATININE FOR GFR 1.31 MG/DL (0.55-1.30); GLOMERULAR FILTRATION RATE 44.6 (>51); PHOSPHORUS LEVEL 3.9 MG/DL (2.5-4.9); POTASSIUM SERUM 4.7 MEQ/L (3.5-5.1)
== END ==
LOC: M SMT 08:36
PROVIDERS: ATTEND Internal Medicine Nephrology
DX: Z94.0 Kidney transplant status (principal)

== ENCOUNTER → 2018-11-28 | Outpatient (CLI) | payer BC ==
[2018-11-28 12:16] LABS: HEMATOCRIT 36.3 % (36.0-47.0); HEMOGLOBIN 11.4 g/dl (12.0-15.5); MEAN CORPUSCULAR HEMOGLOBIN 27.8 pg (27.0-33.0); MEAN CORPUSCULAR HGB CONC 31.4 g/dl (32.0-36.5); MEAN CORPUSCULAR VOLUME 88.5 fl (80.0-96.0); PLATELET COUNT, AUTOMATED 186 10^3/uL (150-450); WHITE BLOOD COUNT 2.2 10^3/uL (4.0-10.0)
[2018-11-28 12:24] LABS: ALBUMIN 3.7 GM/DL (3.2-5.2); ALT/SGPT 19 U/L (12-78); BILIRUBIN,DIRECT < 0.1 MG/DL (0.0-0.2); BILIRUBIN,TOTAL 0.4 MG/DL (0.2-1.0); BLOOD UREA NITROGEN 28 MG/DL (7-18); CALCIUM LEVEL 8.6 MG/DL (8.5-10.1); CARBON DIOXIDE LEVEL 29 MEQ/L (21-32); CHLORIDE LEVEL 103 MEQ/L (98-107); CHOLESTEROL LEVEL 272 MG/DL (<200); CREATININE FOR GFR 1.38 MG/DL (0.55-1.30); GLUCOSE, FASTING 95 MG/DL (70-100); HDL CHOLESTEROL 59 MG/DL (>40); LDL CHOLESTEROL 185 MG/DL (<100); NON-HDL-C 213 MG/DL; POTASSIUM SERUM 4.6 MEQ/L (3.5-5.1); RHEUMATOID FACTOR QUANT 19.2 IU/ML (<15.0); SODIUM LEVEL 137 MEQ/L (136-145); TOTAL PROTEIN 6.3 GM/DL (6.4-8.2); TRIGLYCERIDES LEVEL 140 MG/DL (<150)
[2018-11-28 13:07] LABS: ERYTHROCYTE SEDIMENTATION RATE 14 mm/hr (0-30)
[2018-11-28 22:30] LABS: APPEARANCE, URINE CLEAR (CLEAR); BACTERIA, URINE AUTO NEGATIVE (NEGATIVE); BILIRUBIN, URINE AUTO NEGATIVE (NEGATIVE); BLOOD, URINE BLOOD NEGATIVE (NEGATIVE); COLOR, URINE STRAW (YELLOW); GLUCOSE, URINE (UA) AUTO NEGATIVE (NEGATIVE); KETONE, URINE AUTO NEGATIVE (NEGATIVE); LEUKOCYTE ESTERASE, URINE AUTO NEGATIVE (NEGATIVE); NITRITE, URINE AUTO NEGATIVE (NEGATIVE); PROTEIN, URINE AUTO NEGATIVE (NEGATIVE); RBC, URINE AUTO 0 /HPF (0-3); SPECIFIC GRAVITY URINE AUTO 1.005 (1.002-1.035); SQUAMOUS EPITHELIAL CELL UR AU 0 /HPF (0-6); UROBILINOGEN, URINE AUTO 0.2 mg/dL (0.0-2.0); WBC, URINE AUTO 0 /HPF (0-3)
[2018-11-28 22:54] LABS: CREATININE,RANDOM URINE 30.3 MG/DL; TOTAL PROTEIN,RANDOM URINE 5.9 MG/DL (0.0-12.0)
== END ==
LOC: M SMT 08:05
PROVIDERS: ATTEND Internal Medicine Nephrology
DX: M25.60 Stiffness of unspecified joint, not elsewhere classified (principal); Z94.0 Kidney transplant status

== ENCOUNTER → 2019-03-28 | Outpatient (CLI) | payer BC ==
[2019-03-28 12:09] LABS: APPEARANCE, URINE HAZY (CLEAR); BACTERIA, URINE AUTO NEGATIVE (NEGATIVE); BILIRUBIN, URINE AUTO NEGATIVE (NEGATIVE); BLOOD, URINE BLOOD NEGATIVE (NEGATIVE); COLOR, URINE YELLOW (YELLOW); GLUCOSE, URINE (UA) AUTO NEGATIVE (NEGATIVE); KETONE, URINE AUTO TRACE mg/dL (NEGATIVE); LEUKOCYTE ESTERASE, URINE AUTO NEGATIVE (NEGATIVE); NITRITE, URINE AUTO NEGATIVE (NEGATIVE); PROTEIN, URINE AUTO NEGATIVE (NEGATIVE); RBC, URINE AUTO 0 /HPF (0-3); SPECIFIC GRAVITY URINE AUTO 1.018 (1.002-1.035); SQUAMOUS EPITHELIAL CELL UR AU 1 /HPF (0-6); UROBILINOGEN, URINE AUTO 0.2 mg/dL (0.0-2.0); WBC, URINE AUTO 1 /HPF (0-3)
[2019-03-28 12:15] LABS: HEMATOCRIT 38.6 % (36.0-47.0); HEMOGLOBIN 11.9 g/dl (12.0-15.5); MEAN CORPUSCULAR HEMOGLOBIN 26.4 pg (27.0-33.0); MEAN CORPUSCULAR HGB CONC 30.8 g/dl (32.0-36.5); MEAN CORPUSCULAR VOLUME 85.8 fl (80.0-96.0); PLATELET COUNT, AUTOMATED 198 10^3/uL (150-450); WHITE BLOOD COUNT 2.9 10^3/uL (4.0-10.0)
[2019-03-28 12:27] LABS: BILIRUBIN,DIRECT 0.1 MG/DL (0.0-0.2); BILIRUBIN,TOTAL 0.5 MG/DL (0.2-1.0); CALCIUM LEVEL 8.6 MG/DL (8.5-10.1); CHOLESTEROL RISK RATIO 5.089 (<5); CREATININE FOR GFR 1.41 MG/DL (0.55-1.30); GLOMERULAR FILTRATION RATE 40.8 (>51); POTASSIUM SERUM 4.5 MEQ/L (3.5-5.1); TOTAL PROTEIN 6.9 GM/DL (6.4-8.2)
[2019-03-28 12:54] LABS: TOTAL PROTEIN,RANDOM URINE 18.7 MG/DL (0.0-12.0)
== END ==
LOC: M PLALAB 09:10
PROVIDERS: ATTEND Internal Medicine Nephrology
DX: Z94.0 Kidney transplant status (principal); M25.60 Stiffness of unspecified joint, not elsewhere classified

== ENCOUNTER → 2019-06-26 | Outpatient (CLI) | payer BC ==
[2019-06-26 11:20] LABS: BASO % 1.3 % (0.0-1.0); EOS # 0.1 10^3/uL (0.0-0.5); EOS % 3.3 % (0.0-3.0); HEMATOCRIT 37.1 % (36.0-47.0); HEMOGLOBIN 11.7 g/dl (12.0-15.5); MEAN CORPUSCULAR HEMOGLOBIN 27.2 pg (27.0-33.0); MEAN CORPUSCULAR HGB CONC 31.5 g/dl (32.0-36.5); MEAN CORPUSCULAR VOLUME 86.3 fl (80.0-96.0); MONO # 0.2 10^3/uL (0.0-0.8); MONO % 8.8 % (0.0-5.0); NEUTROPHILS # 1.1 10^3/uL (1.5-8.5); NEUTROPHILS % 46.6 % (36.0-66.0); PLATELET COUNT, AUTOMATED 170 10^3/uL (150-450); WHITE BLOOD COUNT 2.4 10^3/uL (4.0-10.0)
[2019-06-26 11:33] LABS: INR 0.97; PROTHROMBIN TIME 12.6 SECONDS (11.8-14.0)
[2019-06-26 11:34] LABS: PARTIAL THROMBOPLASTIN TIME 31.8 SECONDS (25.0-38.4)
[2019-06-26 11:49] LABS: ALBUMIN 3.6 GM/DL (3.2-5.2); BILIRUBIN,TOTAL 0.4 MG/DL (0.2-1.0); CALCIUM LEVEL 8.7 MG/DL (8.5-10.1); CHOLESTEROL RISK RATIO 4.451 (<5); CREATININE FOR GFR 1.21 MG/DL (0.55-1.30); FREE T4 0.97 NG/DL (0.76-1.46); GLOMERULAR FILTRATION RATE 48.7 (>51); POTASSIUM SERUM 4.8 MEQ/L (3.5-5.1); THYROID STIMULATING HORMONE 2.2 uIU/ML (0.358-3.740); TOTAL PROTEIN 6.6 GM/DL (6.4-8.2)
== END ==
LOC: M PLALAB 09:28
PROVIDERS: ATTEND Family Medicine
DX: N18.3 Chronic kidney disease, stage 3 (moderate) (principal); R23.8 Other skin changes; E78.5 Hyperlipidemia, unspecified; Z94.0 Kidney transplant status

== ENCOUNTER → 2019-06-26 | Outpatient (REF) | payer BC ==
[2019-06-26 17:30] LABS: APPEARANCE, URINE CLEAR (CLEAR); BACTERIA, URINE AUTO NEGATIVE (NEGATIVE); BILIRUBIN, URINE AUTO NEGATIVE (NEGATIVE); BLOOD, URINE BLOOD NEGATIVE (NEGATIVE); COLOR, URINE STRAW (YELLOW); GLUCOSE, URINE (UA) AUTO NEGATIVE (NEGATIVE); KETONE, URINE AUTO NEGATIVE (NEGATIVE); LEUKOCYTE ESTERASE, URINE AUTO NEGATIVE (NEGATIVE); NITRITE, URINE AUTO NEGATIVE (NEGATIVE); PROTEIN, URINE AUTO NEGATIVE (NEGATIVE); RBC, URINE AUTO 0 /HPF (0-3); SPECIFIC GRAVITY URINE AUTO 1.004 (1.002-1.035); SQUAMOUS EPITHELIAL CELL UR AU 0 /HPF (0-6); UROBILINOGEN, URINE AUTO 0.2 mg/dL (0.0-2.0); WBC, URINE AUTO 0 /HPF (0-3)
== END ==
LOC: M SFHCADAM 16:51
PROVIDERS: ATTEND Family Medicine
DX: Z94.0 Kidney transplant status (principal); N18.3 Chronic kidney disease, stage 3 (moderate)

== ENCOUNTER → 2019-08-07 | Outpatient (REF) | payer BC ==
[2019-08-07 22:02] LABS: APPEARANCE, URINE CLEAR (CLEAR); BACTERIA, URINE AUTO NEGATIVE (NEGATIVE); BILIRUBIN, URINE AUTO NEGATIVE (NEGATIVE); BLOOD, URINE BLOOD NEGATIVE (NEGATIVE); COLOR, URINE STRAW (YELLOW); GLUCOSE, URINE (UA) AUTO NEGATIVE (NEGATIVE); KETONE, URINE AUTO NEGATIVE (NEGATIVE); LEUKOCYTE ESTERASE, URINE AUTO NEGATIVE (NEGATIVE); NITRITE, URINE AUTO NEGATIVE (NEGATIVE); PROTEIN, URINE AUTO NEGATIVE (NEGATIVE); RBC, URINE AUTO 0 /HPF (0-3); SPECIFIC GRAVITY URINE AUTO 1.004 (1.002-1.035); SQUAMOUS EPITHELIAL CELL UR AU 0 /HPF (0-6); UROBILINOGEN, URINE AUTO 0.2 mg/dL (0.0-2.0); WBC, URINE AUTO 0 /HPF (0-3)
== END ==
LOC: M SFHCADAM 08:39
PROVIDERS: ATTEND Family Medicine
DX: R39.15 Urgency of urination (principal)

== ENCOUNTER → 2019-09-04 | Outpatient (REF) | payer BC ==
[2019-09-04 14:34] LABS: HEMATOCRIT 38.5 % (36.0-47.0); HEMOGLOBIN 12.1 g/dl (12.0-15.5); MEAN CORPUSCULAR HEMOGLOBIN 27.4 pg (27.0-33.0); MEAN CORPUSCULAR HGB CONC 31.4 g/dl (32.0-36.5); MEAN CORPUSCULAR VOLUME 87.1 fl (80.0-96.0); PLATELET COUNT, AUTOMATED 192 10^3/uL (150-450); RED BLOOD COUNT 4.42 10^6/uL (4.00-5.40); WHITE BLOOD COUNT 3.1 10^3/uL (4.0-10.0)
[2019-09-04 14:37] LABS: ALBUMIN 3.7 GM/DL (3.2-5.2); BILIRUBIN,TOTAL 0.4 MG/DL (0.2-1.0); CALCIUM LEVEL 9.1 MG/DL (8.5-10.1); CHOLESTEROL RISK RATIO 4.03 (<5); CREATININE FOR GFR 1.3 MG/DL (0.55-1.30); FREE T4 1.07 NG/DL (0.76-1.46); GLOMERULAR FILTRATION RATE 44.8 (>51); POTASSIUM SERUM 4.9 MEQ/L (3.5-5.1); THYROID STIMULATING HORMONE 1.92 uIU/ML (0.358-3.740); TOTAL PROTEIN 6.8 GM/DL (6.4-8.2)
[2019-09-04 14:40] LABS: CORTISOL AM 8.5 UG/DL (4.3-22.4)
[2019-09-04 14:45] LABS: HEMOGLOBIN A1c 5.6 %
== END ==
LOC: M SFHCADAM 09:16
PROVIDERS: ATTEND Family Medicine
DX: R53.82 Chronic fatigue, unspecified (principal); Z94.0 Kidney transplant status; R53.83 Other fatigue; E16.2 Hypoglycemia, unspecified; R39.15 Urgency of urination; E78.5 Hyperlipidemia, unspecified

== ENCOUNTER → 2019-09-18 | Outpatient (REF) | payer BC | LOC: M SFHCWAGY 18:00 | PROVIDERS: ATTEND Nurse Practitioner Women's Health | DX: Z12.4 Encounter for screening for malignant neoplasm of cervix (principal); N85.8 Other specified noninflammatory disorders of uterus | CPT/HCPCS: 87624; G0123 ==

== ENCOUNTER → 2019-12-08 | Outpatient (CLI) | payer BC ==
[2019-12-08 12:50] LABS: ALBUMIN 3.7 GM/DL (3.2-5.2); BILIRUBIN,TOTAL 0.5 MG/DL (0.2-1.0); CALCIUM LEVEL 8.8 MG/DL (8.5-10.1); CREATININE FOR GFR 1.21 MG/DL (0.55-1.30); GLOMERULAR FILTRATION RATE 48.7 (>51); HEMATOCRIT 38.3 % (36.0-47.0); MEAN CORPUSCULAR HEMOGLOBIN 26.8 pg (27.0-33.0); MEAN CORPUSCULAR HGB CONC 31.3 g/dl (32.0-36.5); MEAN CORPUSCULAR VOLUME 85.5 fl (80.0-96.0); PLATELET COUNT, AUTOMATED 193 10^3/uL (150-450); POTASSIUM SERUM 4.1 MEQ/L (3.5-5.1); RED BLOOD COUNT 4.48 10^6/uL (4.00-5.40); TOTAL PROTEIN 6.8 GM/DL (6.4-8.2); WHITE BLOOD COUNT 2.8 10^3/uL (4.0-10.0)
== END ==
LOC: M PLALAB 07:52
PROVIDERS: ATTEND Internal Medicine Nephrology
DX: Z94.0 Kidney transplant status (principal); E78.2 Mixed hyperlipidemia

== ENCOUNTER → 2019-12-18 | Outpatient (REF) | payer BC ==
[2019-12-18 17:46] LABS: APPEARANCE, URINE CLEAR (CLEAR); BACTERIA, URINE AUTO NEGATIVE (NEGATIVE); BILIRUBIN, URINE AUTO NEGATIVE (NEGATIVE); BLOOD, URINE BLOOD NEGATIVE (NEGATIVE); COLOR, URINE STRAW (YELLOW); GLUCOSE, URINE (UA) AUTO NEGATIVE (NEGATIVE); KETONE, URINE AUTO NEGATIVE (NEGATIVE); LEUKOCYTE ESTERASE, URINE AUTO NEGATIVE (NEGATIVE); NITRITE, URINE AUTO NEGATIVE (NEGATIVE); PROTEIN, URINE AUTO NEGATIVE (NEGATIVE); RBC, URINE AUTO 0 /HPF (0-3); SPECIFIC GRAVITY URINE AUTO 1.006 (1.002-1.035); SQUAMOUS EPITHELIAL CELL UR AU 0 /HPF (0-6); UROBILINOGEN, URINE AUTO 0.2 mg/dL (0.0-2.0); WBC, URINE AUTO 0 /HPF (0-3)
== END ==
LOC: M SFHCADAM 15:26
PROVIDERS: ATTEND Family Medicine
DX: Z94.0 Kidney transplant status (principal); N18.3 Chronic kidney disease, stage 3 (moderate)

== ENCOUNTER → 2019-12-18 | Outpatient (CLI) | payer BC ==
--- NOTE | 2019-12-23 08:08 | REP ---
CHEST X-RAY: 2-VIEWS HISTORY: Chronic cough. COMPARISON: Chest x-ray 01/12/2014. FINDINGS: The lungs are symmetrically aerated and clear. The pleural angles are sharp. Heart size is normal. Pulmonary vasculature is not increased. No significant bony abnormality is seen. IMPRESSION: Negative chest x-ray. MTDD
== END ==
LOC: M ADAMS 15:32
PROVIDERS: ATTEND Family Medicine
DX: R05 Cough (principal)

== ENCOUNTER → 2020-01-08 | Outpatient (CLI) | payer BC ==
[2020-01-08 10:23] LABS: HEMATOCRIT 38.5 % (36.0-47.0); HEMOGLOBIN 11.9 g/dl (12.0-15.5); MEAN CORPUSCULAR HEMOGLOBIN 26.4 pg (27.0-33.0); MEAN CORPUSCULAR HGB CONC 30.9 g/dl (32.0-36.5); MEAN CORPUSCULAR VOLUME 85.4 fl (80.0-96.0); PLATELET COUNT, AUTOMATED 180 10^3/uL (150-450); RED BLOOD COUNT 4.51 10^6/uL (4.00-5.40); WHITE BLOOD COUNT 2.3 10^3/uL (4.0-10.0)
[2020-01-08 10:26] LABS: BASO % 0.9 % (0.0-1.0); EOS # 0.1 10^3/uL (0.0-0.5); HEMATOCRIT 38.1 % (36.0-47.0); HEMOGLOBIN 11.9 g/dl (12.0-15.5); LYMPH # 0.9 10^3/uL (1.5-5.0); LYMPH % 43.1 % (24.0-44.0); MEAN CORPUSCULAR HEMOGLOBIN 26.7 pg (27.0-33.0); MEAN CORPUSCULAR HGB CONC 31.2 g/dl (32.0-36.5); MEAN CORPUSCULAR VOLUME 85.6 fl (80.0-96.0); MONO # 0.2 10^3/uL (0.0-0.8); MONO % 8.7 % (0.0-5.0); NEUTROPHILS % 42.3 % (36.0-66.0); PLATELET COUNT, AUTOMATED 175 10^3/uL (150-450); RED BLOOD COUNT 4.45 10^6/uL (4.00-5.40); WHITE BLOOD COUNT 2.2 10^3/uL (4.0-10.0)
[2020-01-08 10:45] LABS: NEUTROPHILS # 0.9 10^3/uL (1.5-8.5)
[2020-01-08 10:52] LABS: BILIRUBIN,TOTAL 0.5 MG/DL (0.2-1.0); CREATININE FOR GFR 1.28 MG/DL (0.55-1.30); GLOMERULAR FILTRATION RATE 45.6 (>51); POTASSIUM SERUM 4.6 MEQ/L (3.5-5.1)
[2020-01-08 10:53] LABS: ALBUMIN 3.8 GM/DL (3.2-5.2); ALBUMIN 3.9 GM/DL (3.2-5.2); BILIRUBIN,TOTAL 0.5 MG/DL (0.2-1.0); CHOLESTEROL RISK RATIO 4.044 (<5); CREATININE FOR GFR 1.23 MG/DL (0.55-1.30); GLOMERULAR FILTRATION RATE 47.7 (>51); POTASSIUM SERUM 4.8 MEQ/L (3.5-5.1); TOTAL PROTEIN 6.7 GM/DL (6.4-8.2); TOTAL PROTEIN 6.8 GM/DL (6.4-8.2)
[2020-01-08 10:54] LABS: HEMOGLOBIN A1c 5.5 %
[2020-01-08 13:38] LABS: APPEARANCE, URINE CLEAR (CLEAR); BACTERIA, URINE AUTO NEGATIVE (NEGATIVE); BILIRUBIN, URINE AUTO NEGATIVE (NEGATIVE); BLOOD, URINE BLOOD NEGATIVE (NEGATIVE); COLOR, URINE STRAW (YELLOW); GLUCOSE, URINE (UA) AUTO NEGATIVE (NEGATIVE); KETONE, URINE AUTO NEGATIVE (NEGATIVE); LEUKOCYTE ESTERASE, URINE AUTO NEGATIVE (NEGATIVE); NITRITE, URINE AUTO NEGATIVE (NEGATIVE); PROTEIN, URINE AUTO NEGATIVE (NEGATIVE); RBC, URINE AUTO 0 /HPF (0-3); SPECIFIC GRAVITY URINE AUTO 1.003 (1.002-1.035); SQUAMOUS EPITHELIAL CELL UR AU 0 /HPF (0-6); UROBILINOGEN, URINE AUTO 0.2 mg/dL (0.0-2.0); WBC, URINE AUTO 0 /HPF (0-3)
[2020-01-08 14:21] LABS: CREATININE, URINE 23.8 MG/DL; MALB URINE SIEMENS < 5.0 MG/L
== END ==
LOC: M PLALAB 07:50
PROVIDERS: ATTEND Internal Medicine Nephrology
DX: R73.9 Hyperglycemia, unspecified (principal); Z94.0 Kidney transplant status; E78.2 Mixed hyperlipidemia

== ENCOUNTER → 2020-04-08 | Outpatient (CLI) | payer BC ==
[2020-04-08 11:40] LABS: HEMATOCRIT 36.4 % (36.0-47.0); HEMOGLOBIN 11.5 g/dl (12.0-15.5); MEAN CORPUSCULAR HEMOGLOBIN 27.1 pg (27.0-33.0); MEAN CORPUSCULAR HGB CONC 31.6 g/dl (32.0-36.5); MEAN CORPUSCULAR VOLUME 85.6 fl (80.0-96.0); PLATELET COUNT, AUTOMATED 173 10^3/uL (150-450); RED BLOOD COUNT 4.25 10^6/uL (4.00-5.40); WHITE BLOOD COUNT 2.3 10^3/uL (4.0-10.0)
[2020-04-08 12:15] LABS: ALBUMIN 3.8 GM/DL (3.2-5.2); BILIRUBIN,TOTAL 0.4 MG/DL (0.2-1.0); CREATININE FOR GFR 1.48 MG/DL (0.55-1.30); GLOMERULAR FILTRATION RATE 38.4 (>51); POTASSIUM SERUM 4.2 MEQ/L (3.5-5.1); TOTAL PROTEIN 6.6 GM/DL (6.4-8.2)
== END ==
LOC: M PLALAB 08:02
PROVIDERS: ATTEND Internal Medicine Nephrology
DX: Z94.0 Kidney transplant status (principal); E78.2 Mixed hyperlipidemia

== ENCOUNTER → 2020-09-16 | Outpatient (CLI) | payer BC ==
[2020-09-16 10:54] LABS: EOS # 0.1 10^3/uL (0.0-0.5); EOS % 4.6 % (0.0-3.0); HEMATOCRIT 38.5 % (36.0-47.0); HEMOGLOBIN 12.1 g/dl (12.0-15.5); LYMPH # 1.2 10^3/uL (1.5-5.0); LYMPH % 37.8 % (24.0-44.0); MEAN CORPUSCULAR HGB CONC 31.4 g/dl (32.0-36.5); MEAN CORPUSCULAR VOLUME 85.9 fl (80.0-96.0); MONO # 0.3 10^3/uL (0.0-0.8); MONO % 9.8 % (2.0-8.0); NEUTROPHILS # 1.4 10^3/uL (1.5-8.5); NEUTROPHILS % 46.8 % (36.0-66.0); PLATELET COUNT, AUTOMATED 185 10^3/uL (150-450); RED BLOOD COUNT 4.48 10^6/uL (4.00-5.40); WHITE BLOOD COUNT 3.1 10^3/uL (4.0-10.0)
[2020-09-16 11:29] LABS: ALBUMIN 3.7 GM/DL (3.2-5.2); BILIRUBIN,TOTAL 0.5 MG/DL (0.2-1.0); CALCIUM LEVEL 8.7 MG/DL (8.5-10.1); CHOLESTEROL RISK RATIO 3.563 (<5); CREATININE FOR GFR 1.18 MG/DL (0.55-1.30); GLOMERULAR FILTRATION RATE 49.9 (>51); POTASSIUM SERUM 4.4 MEQ/L (3.5-5.1); TOTAL PROTEIN 6.7 GM/DL (6.4-8.2)
== END ==
LOC: M PLALAB 08:18
PROVIDERS: ATTEND Family Medicine
DX: E78.2 Mixed hyperlipidemia (principal)

== ENCOUNTER → 2020-10-07 | Outpatient (CLI) | payer BC | LOC: M PLALAB 08:08 | PROVIDERS: ATTEND Family Medicine | DX: Z94.0 Kidney transplant status (principal) ==

== ENCOUNTER 2020-11-29 14:51 | Emergency (ER) | payer BC ==
[~2020-11-29] VITALS: Ht 172.7 cm; Wt 69.6 kg
[2020-11-29 17:36] LABS: HEMATOCRIT 37.6 % (36.0-47.0); HEMOGLOBIN 12.2 g/dl (12.0-15.5); LYMPH # 0.8 10^3/uL (1.5-5.0); LYMPH % 41.5 % (24.0-44.0); MEAN CORPUSCULAR HEMOGLOBIN 26.6 pg (27.0-33.0); MEAN CORPUSCULAR HGB CONC 32.4 g/dl (32.0-36.5); MEAN CORPUSCULAR VOLUME 82.1 fl (80.0-96.0); MONO # 0.2 10^3/uL (0.0-0.8); MONO % 8.7 % (2.0-8.0); NEUTROPHILS % 49.8 % (36.0-66.0); PLATELET COUNT, AUTOMATED 134 10^3/uL (150-450); RED BLOOD COUNT 4.58 10^6/uL (4.00-5.40)
--- NOTE | 2020-11-29 17:39 | REP ---
INDICATION: COVID pneumonia. COMPARISON: Comparison chest x-ray is from December 18, 2019. TECHNIQUE: Upright sitting AP chest x-ray. Portable exam. FINDINGS: The lungs are well inflated. There is subtle area of increased density above the minor fissure in the right upper lobe. Lung peña are otherwise clear. Pleural angles are sharp. Heart size is normal. Pulmonary vasculature is not increased. No bony abnormality. IMPRESSION: Subtle right upper lobe infiltrate suspected just above the minor fissure. Otherwise negative portable chest x-ray. <Electronically signed by Easton Solis > 11/29/20 [id number]
[2020-11-29 18:19] LABS: ALBUMIN 3.2 GM/DL (3.2-5.2); ALT/SGPT 27 U/L (12-78); BILIRUBIN,TOTAL 0.3 MG/DL (0.2-1.0); BLOOD UREA NITROGEN 19 MG/DL (7-18); CALCIUM LEVEL 8.4 MG/DL (8.5-10.1); CARBON DIOXIDE LEVEL 28 MEQ/L (21-32); CHLORIDE LEVEL 103 MEQ/L (98-107); CK-MB VALUE MASS < 1.0 NG/ML (<3.6); CPK CREATINE PHOSPHOKINASE 88 U/L (26-192); CREATININE FOR GFR 1.23 MG/DL (0.55-1.30); GLOMERULAR FILTRATION RATE 47.6 (>51); GLUCOSE, FASTING 103 MG/DL (70-100); MB/CK RELATIVE INDEX 1.14 (< OR =4); POTASSIUM SERUM 4.1 MEQ/L (3.5-5.1); SODIUM LEVEL 136 MEQ/L (136-145); TOTAL PROTEIN 6.4 GM/DL (6.4-8.2); TROPONIN I < 0.02 NG/ML (< 0.10)
[2020-11-29 19:38] LABS: RSV AMPLIFICATION NEGATIVE (NEGATIVE)
[2020-11-29] MEDS ORDERED: ONDANSETRON 4MG/2ML VIAL IV ONE (21:50)
[2020-11-29] MEDS ORDERED: ACETAMINOPHEN TAB 650MG DOSE (2X325MG) PO ONE (22:45)
[2020-11-30 00:38] VITALS: BP 110/69
--- NOTE | 2020-11-30 13:53 | ECGEPIP ---
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
== END 2020-11-30 00:39 | disposition home or self-care (01) ==
LOC: M ED 14:51
DX: U07.1 COVID-19 (principal); J12.82 Pneumonia due to coronavirus disease 2019
CPT/HCPCS: 71045; 80053; 82550; 82553; 84484; 85025; 87631; 93005; 96374; 99284; J2405

== ENCOUNTER 2020-11-30 00:25 | Outpatient (CLI) | payer BC ==
--- NOTE | 2020-11-29 19:59 | HPEPDOC ---
[facility] Medical History & Physical Date of Admission Nov 29, 2020 Date of Service: Nov 29, 2020 Primary Care Physician: Elvis Carcamo MD Attending Physician: DENNYS JHA MD History and Physical CHIEF COMPLAINT: [malaise] HISTORY OF PRESENT ILLNESS: [This is a 60 y/o female with a pmh of polycystic kidney disease s/p transplantation on immunomodulating antirejection therapy who presents to our ED on 11/29 with a cc of malaise, fever, nausea, vomiting that have been escalating over the past week. Patient's symptoms began approximately 9 days ago and she was tested positive 6 days ago. Patient states that she has been taking tylenol as well as "natural therapies" at home to some relief but states that overall she is feeling worse and decided to come in to see if she could qualify for monoclonal antibody therapy. Patient states she is concerned because with her vomiting she has not been able to keep down her antirejection medications. Patient states that she has had "heavy breathing" throughout the course of her illness but not explicitly sob. Patient, at the time of my exam, denies chest pain, syncope, paresthesias, pedal edema, hemoptysis, calf pain.] PAST MEDICAL HISTORY: 1. [See HPI PAST SURGICAL HISTORY: 1. [Kidney transplant]. SOCIAL HISTORY: Tobacco use:[Denies] ETOH: [Denies] Illicit drug use: [Denies] FAMILY HISTORY: Reviewed - none pertinent ALLERGIES: Please see below. REVIEW OF SYSTEMS: CONSTITUTIONAL: [See HPI]. HEENT: [See HPI]. CARDIOVASCULAR: [Denies chest pain, palpitations]. RESPIRATORY: [See HPI]. GASTROINTESTINAL: [See HPI]. GENITOURINARY: [Denies dysuria]. SKIN: [Denies rash]. MUSCULOSKELETAL: [Denies acute joint pain]. NEUROLOGICAL: [Denies syncope, paresthesias]. ENDOCRINE: [Denies hx of DM]. HEMATOLOGIC/LYMPHATIC: [Denies hx of vte]. HOME MEDICATIONS: Please see below. PHYSICAL EXAMINATION: VITAL SIGNS: Please see below. GENERAL APPEARANCE: [This is a fatigued appearing 60 y/o female who is alert and oriented to all questioning. She does not appear to be in any respiratory distress]. HEENT: [No mass or lesion. EOMI. Nares patent. Oral mucosa moist]. CARDIOVASCULAR: [Regular rate, rhythm]. LUNGS: [Good air flow b/l. No wheezing, rales]. ABDOMEN: [Soft, nontender]. MUSCULOSKELETAL: [No joint deformity noted]. EXTREMITIES: [No pedal edema appreciated. Pulses intact. No overlying skin changes]. NEUROLOGICAL: [Speech clear. A+Ox3. No focal deficits]. PSYCHIATRIC: [Mood and affect appear appropriate]. LABORATORY DATA: See below. IMAGING: [CXR: FINDINGS: The lungs are well inflated. There is subtle area of increased density above the minor fissure in the right upper lobe. Lung peña are otherwise clear. P leural angles are sharp. Heart size is normal. Pulmonary vasculature is not increased. No bony abnormality. IMPRESSION: Subtle right upper lobe infiltrate suspected just above the minor fissure. Otherwise negative portable chest x-ray.] MICROBIOLOGY: Please see below. ASSESSMENT: [This is a 60 y/o female with a pmh of polycystic kidney disease s/p transplantation on immunomodulating antirejection therapy who presents to our ED on 11/29 with a cc of malaise, fever, nausea, vomiting that have been escalating over the past week.]. . PLAN: 1. [COVID19 pneumonia - Patietn showing small infiltrate on cxr - almost certainly d/t covid 19, suspicion for oppurtunistic bacterial infection low with no leukocytosis, sirs criteria - Patient not hypoxic - does not meet criteria for hospital admission - D/t patients immunocompromised status - will go ahead and give monoclonal anti body infusion - Carisivimab/imdevimab ordered - consent form will be filled out prior to infusion - Risks/benefits of monoclonal antibody therapy discussed with patient who expressed understanding and wishes to move forward with treatment - Will order medications in case of reaction - Pending no complications, patient may go home after observation period after infusion is complete - Renal diet]. Home Medications No Active Prescriptions or Reported Meds Allergies Coded Allergies: No Known Allergies (Unverified , 11/29/20) A-FIB/CHADSVASC A-FIB History Current/History of A-Fib/PAF?: No DIEGO RAMIREZ Nov 29, 2020 19:59 DENNYS JHA MD Nov 30, 2020 07:05
[~2020-11-30] VITALS: Ht 172.7 cm; Wt 73.1 kg
[~2020-11-30 00:25] MED LIST: ACETAMINOPHEN TAB 650MG DOSE (2X325MG) PO PRN; ALBUTEROL 90 MCG/ACT 8GM HFA INHALER INH PRN; ALBUTEROL SULFATE 2.5 MG/0.5 ML INH NEB SOLN INH PRN; EPINEPHrine INJ 1 MG/ML 1ML AMP IM PRN; NS 1,000 ML IV SCH; diphenhydrAMINE 50MG/ML VIAL (J1200) IV PRN; methylPREDNISolone 125MG 2ML VIAL IV PRN
[2020-11-30] MEDS ORDERED: CASIRIVIMAB/IMDEVIMAB 1,200 MG in NS 250 ML IV ONE (00:26)
[2020-11-30 01:16] VITALS: BP 128/70
[2020-11-30 01:35] VITALS: BP 128/70
[2020-11-30 02:05] VITALS: BP 122/71
[2020-11-30 02:35] VITALS: BP 113/66
[2020-11-30 03:00] VITALS: BP 113/56
[2020-11-30 04:00] VITALS: BP 124/72
== END 2020-11-30 04:10 ==
LOC: M 4MAIN 00:25 → M OPCLI4 00:25
PROVIDERS: ATTEND Internal Medicine
DX: U07.1 COVID-19 (principal)

== ENCOUNTER → 2020-12-28 | Outpatient (CLI) | payer BC ==
--- NOTE | 2020-12-28 16:24 | REP ---
INDICATION: COVID-19 COMPARISON: 11/29/2020 TECHNIQUE: PA and lateral. FINDINGS: The mediastinum and cardiac silhouette are normal. The lung peña are clear and without acute consolidation, effusion, or pneumothorax. The skeletal structures are intact and normal. IMPRESSION: No acute cardiopulmonary process. <Electronically signed by Ty France > 12/28/20 5100
== END ==
LOC: M ADAMS 16:05
PROVIDERS: ATTEND Family Medicine
DX: U07.1 COVID-19 (principal)

== ENCOUNTER → 2020-12-28 | Outpatient (REF) | payer BC | LOC: M SFHCADAM 15:59 | PROVIDERS: ATTEND Family Medicine | DX: U07.1 COVID-19 (principal); J12.82 Pneumonia due to coronavirus disease 2019 ==

== ENCOUNTER → 2020-12-29 | Outpatient (CLI) | payer BC ==
[2020-12-29 10:12] LABS: HEMATOCRIT 37.1 % (36.0-47.0); MEAN CORPUSCULAR HGB CONC 32.3 g/dl (32.0-36.5); MEAN CORPUSCULAR VOLUME 83.6 fl (80.0-96.0); PLATELET COUNT, AUTOMATED 186 10^3/uL (150-450); RED BLOOD COUNT 4.44 10^6/uL (4.00-5.40); WHITE BLOOD COUNT 3.2 10^3/uL (4.0-10.0)
[2020-12-29 11:09] LABS: ALBUMIN 3.6 GM/DL (3.2-5.2); BILIRUBIN,TOTAL 0.4 MG/DL (0.2-1.0); C REACTIVE PROTEIN QUANTITATIV 0.3 MG/DL (0.00-0.30); CREATININE FOR GFR 1.12 MG/DL (0.55-1.30); POTASSIUM SERUM 4.2 MEQ/L (3.5-5.1); TOTAL PROTEIN 6.7 GM/DL (6.4-8.2)
== END ==
LOC: M PLALAB 07:47
PROVIDERS: ATTEND Family Medicine
DX: Z11.52 Encounter for screening for COVID-19 (principal)

== ENCOUNTER 2021-01-09 14:42 | Emergency (ER) | payer BC ==
[~2021-01-09] VITALS: Ht 172.7 cm; Wt 72.0 kg
[2021-01-09 14:42] VITALS: BP 123/65
--- OUTSIDE RECORDS SUMMARY | 2021-01-09 14:49 | CCD ---
Author Author [facility] Organization [facility] Address Unknown Phone Unavailable Care Team Providers Care Senior Analyst Programmer Name Role Phone [place] land[place] Unavailable PROBLEMS Type Condition ICD9-CM Code IQV79-BI Code Onset Dates Condition S tatus W/U Status Risk SNOMED Code Notes Problem Tinnitus, unspecified laterality H93.19 Active conf irmed 78482905 Problem CKD (chronic kidney disease), stage III N18.3 Active confirmed 676502774 Problem Leukopenia, unspecified type D72.819 Active confirm ed 24692297 Problem Kidney transplant status Z94.0 Active confirmed 535632320 Problem 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 Active confirmed 059709843 Problem Acquired hyperlipoproteinemia E78.5 Active confirm ed 0317523 Problem Sleep disturbance G47.9 Active confirmed 53 183838 Problem Unilateral hearing loss H91.90 Active confirmed 52524625 Problem Hypoglycemia E16.2 Active confirmed 6980148 03 Problem Chronic fatigue R53.82 Active confirmed 8422 9001 Problem Vaginal atrophy N95.2 Active confirmed 2971 72677 Problem Urinary incontinence, overflow N39.490 Active confi rmed [id number] ALLERGIES No Known Allergies ENCOUNTERS from 1960 to 2020-12-03 Encounter Location Date Provider Diagnosis [facility] Resident [address] [phone] [place] [address] Nov, Chino Gardner COVID-19 U07.1 IMMUNIZATIONS No Information SOCIAL HISTORY Tobacco Use: Social History Observation Description Date Details (start date - stop date) Never Smoker Sex Assigned At : Social History Observation Description Sex Assigned At Unknown Language: Question Answer Notes Languages spoken: Tristanian Sexual Hx: Question Answer Notes Had sex in the last 12 months (vaginal, oral, or anal)? Yes with Men only Use protection? Yes Alcohol Screening: Question Answer Notes Did you have a drink containing alcohol in the past year? Ye s Points 1 Interpretation Negative How often did you have six or more drinks on one occas ion in the past year? Never (0 points) How many drinks did you have on a typica l day when you were drinking in the past year? 1 or 2 (0 points) How often did you have a drink containing alcohol in t he past year? Monthly or less (1 point) Tobacco Use: Question Answer Notes Are you a: never smoker REASON FOR REFERRAL No Information VITAL SIGNS No information MEDICATIONS Medication SIG (Take, Route, Frequency, Duration) Notes Start Da te End Date Status Biotin 5000 Daily Active Mycelex moon orally Daily Not-T aking Biotin 1000 MCG 1 tablet Orally Once a day for 90 day(s) 0 Dec, Active Docusate Sodium 100 MG 2 tabs Orally Daily Active Omeprazole 20 MG 1 capsule 30 minutes before morning meal Orally Once a day as needed for 30 day(s) Dec, Active Mycophenolate Mofetil 500 MG 1 tab Orally Twice a day Active Tacrolimus 1 MG 3 in the am 4 pm Orally bid Active Clotrimazole 10 MG 1 moon Mouth/Throat Five times a day Not-Taking Estradiol 0.1 MG/GM 1/2 gram Vaginal twice weekly for 90 day(s) Sep, Not-Taking PROCEDURES No Information RESULTS No Results REASON FOR VISIT F/U FOR ED COVID HOME MONITORING MEDICAL (GENERAL) HISTORY Type Description Date Medical History polycystic kidney disease, s /p kidney transplant [facility], 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 Olivarez ([facility]) Medical History hyperlipidemia--LDL>200 (1/2 0), not treated, LDL 180 (06/29), pt declines statin tx Medical History tinnitus/unilateral hearing loss Medical History + RF (low titer) 01/28 Medical History CKD 3, GFR ~ 40 Surgical History kidney transplant 06/22 Surgical History meniscus 2011 Surgical History colonography (neg)--endoscopy not done d ue to kidney size 2011 Hospitalization History No Hospitalization history informati on Goals Section No Information Health Concerns No Information MEDICAL EQUIPMENT No Information MENTAL STATUS No Information FUNCTIONAL STATUS No Information ASSESSMENTS Encounter Date Diagnosis Assessment Notes Treatment Notes Treatm ent Clinical Notes Nov, COVID-19 (ICD-10 - U07.1) You have been infected with coronavirus commonly known as Covid-19. Unfortunately, antibiotics do not help with viral infections. They are usually benign and self-limited infections, so treatment is based on symptomatic relief. Rest and drink clear fluids throughout the day. You may use humidification and saline irrigation to help with the congestion. You may also take motrin or tylenol as needed for pain or fever. You are considered to be contagious at this time. Please quarantine at home as directed. You likely will be contacted by public health who give you further direction viral infections sometimes may last 10-14 days before resolving completely. However, if symptoms are worsening especially if you develop chest pain or difficulty breathing; please be reevaluated as soon as possible. Continue to monitor your O2 sats twice daily. Go to the emergency room if they are consistently below 90 or if you develop chest pain. Onset of symptoms today 11, onset of diagnosis day 2 Nov, Other Medication/s di scussed with patient and questions answered. RTC as needed for worsening or unresolved symptoms. Patient states understanding and agreement with this plan. PLAN OF TREATMENT Treatment Notes Assessment Notes Clinical Notes COVID-19 You have been infected with coronavirus commonly known as Covid-19. Unfortunately, antibiotics do not help with viral infections. They are usually benign and self-limited infections, so treatment is based on symptomatic relief. Rest and drink clear fluids throughout the day. You may use humidification and saline irrigation to help with the congestion. You may also take motrin or tylenol as needed for pain or fever. You are considered to be contagious at this time. Please quarantine at home as directed. You likely will be contacted by public health who give you further direction viral infections sometimes may last 10-14 days before resolving completely. However, if symptoms are worsening especially if you develop chest pain or difficulty breathing; please be reevaluated as soon as possible.Continue to monitor your O2 sats twice daily. Go to the emergency room if they are consistently below 90 or if you develop chest pain. Onset of symptoms today 11, onset of aubree gnosis day 2 Next Appt Details as needed Reason: Provider Name:Jaclyn Vang, 2021-01-25 02:45:00 PM, [address] [place] [address], , [place], [address], Provider Name:Elvis Carcamo, 2021-03 10:30:00 AM, [id number], , [place], [address], Insurance Providers Payer Name Payer Address Payer Phone Insured Name Patient Relati onship to Insured Coverage Start Date Coverage End Date [facility] [id number] [facility] [place] [address] ALETA PAUL self
--- OUTSIDE RECORDS SUMMARY | 2021-01-09 14:49 | CCD ---
Author Author [facility] Organization [facility] Address Unknown Phone Unavailable Care Team Providers Care Internet E Commerce Specialist Name Role Phone Dalia Latham Unavailable PROBLEMS Type Condition ICD9-CM Code [id number] Code Onset Dates Condition S tatus W/U Status Risk SNOMED Code Notes Problem Kidney transplant status Z94.0 Active confirmed 878499484 Problem Unilateral hearing loss H91.90 Active confirmed 55046903 Problem Chronic fatigue R53.82 Active confirmed 8422 9001 Problem Hypoglycemia E16.2 Active confirmed 2508753 03 Problem Vaginal atrophy N95.2 Active confirmed 2971 50722 Problem Urinary incontinence, overflow N39.490 Active confi rmed 586598503 Problem Sleep disturbance G47.9 Active confirmed 53 847657 Problem Acquired hyperlipoproteinemia E78.5 Active confirm ed 7845588 Problem 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 Active confirmed 841941312 Problem Renal transplant recipient Z94.0 Active confirmed 794994710 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 conf irmed 2982287 Problem Skin cancer screening Z12.83 Active confirmed 001943782 Problem Actinic keratosis L57.0 Active confirmed 20 8889909 Problem Mays angioma D18.01 Active confirmed 11776 01 Problem CKD (chronic kidney disease), stage III N18.3 Active confirmed 258976275 Problem Lichen simplex chronicus L28.0 Active confirmed 49196183 Problem Melanocytic nevus of skin D22.9 Active confirmed 490249132 Problem Tinnitus, unspecified laterality H93.19 Active conf irmed 61909007 Problem Leukopenia, unspecified type D72.819 Active confirm ed 21279551 Problem Seborrheic keratoses L82.1 Active confirmed 339857761 Problem Seborrheic keratoses, inflamed L82.0 Active confir med 751069817 Problem Skin tag L91.8 Active confirmed 033469009 Problem Lentigines L81.4 Active confirmed 843044422 ALLERGIES No Known Allergies ENCOUNTERS from 1960 to 2020-12-24 Encounter Location Date Provider Diagnosis [facility] Dermatology [address] [place] [address] [place] [address] Dec, Dalia Latham Skin cancer screening Z12.83 ; Renal transplant recipient Z94.0 ; Lentigines L81.4 ; 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 ; Skin tag L91.8 ; Mays angioma D18.01 ; Seborrheic keratoses L82.1 ; Seborrheic keratoses, inflamed L82.0 ; Actinic keratosis L57.0 ; Lichen simplex chronicus L28.0 and Melanocytic nevus of skin D22.9 IMMUNIZATIONS No Information SOCIAL HISTORY Tobacco Use: Social History Observation Description Date Details (start date - stop date) Never Smoker Sex Assigned At : Social History Observation Description Sex Assigned At Unknown Language: Question Answer Notes Languages spoken: Hungarian Sexual Hx: Question Answer Notes Had sex [...] REASON FOR REFERRAL No Information VITAL SIGNS Weight 155.6 lbs Dec, Weight-kg 70.58 kg Dec, Height 68 in Dec, BMI 23.66 kg/m2 Dec, Blood pressure systolic 122 mm Hg Dec, Blood pressure diastolic 76 mm Hg Dec, MEDICATIONS Medication SIG (Take, Route, Frequency, Duration) Notes Start Da te End Date Status Mycelex moon orally Daily Not-T aking Mycophenolate Mofetil 500 MG 1 tab Orally Twice a day Active Tacrolimus 1 MG 3 in the am 4 pm Orally bid Active Biotin 1000 MCG 1 tablet Orally Once a day for 90 day(s) 0 8 Dec, 2019 Active Omeprazole 20 MG 1 capsule 30 minutes before morning meal Orally Once a day as needed for 30 day(s) Dec, Not-Taking Biotin 5000 Daily Active Estradiol 0.1 MG/GM 1/2 gram Vaginal twice weekly for 90 day(s) Sep, Not-Taking Triamcinolone Acetonide 0.1 % 1 application Externally Twice a day for 10 days Dec, Active Clotrimazole 10 MG 1 moon Mouth/Throat Five times a day Not-Taking Docusate Sodium 100 MG 2 tabs Orally Daily Not-Taking PROCEDURES No Information RESULTS No Results REASON FOR VISIT FBSE MEDICAL (GENERAL) HISTORY Type Description Date Medical History polycystic kidney disease, s /p kidney transplant [facility], physician president is Dr Olivarez ([facility]) Medical History hyperlipidemia--LDL>200 (03/13 0), not treated, LDL 180 (06/29), pt [...] Notes Treatment Notes Treatm ent Clinical Notes Dec, Skin cancer screening (ICD-10 - Z12.83) Patient counseled on signs and symptoms of skin cancer including ABCDE's of Melanoma. Patient counseled to wear sunscreen or use sun protective clothing when outdoors. Avoid peak hours of sun between 10-2. Patient instructed to call with any new or changing lesions. Dec, Renal transplant recipient (ICD-10 - Z94.0) Dec, Lentigines (ICD-10 - L81.4) Benign Lesion Counseling. The patient was extensively counseled regarding the benign nature of the lesion but that skin cancer may arise in this area just as it would anywhere on their skin. For that reason, return to clinic was recommended for any acute changes, itching, burning, or bleeding. The patient was educated that benign lesions are not a covered insurance benefit and treatment would be elective and cosmetic. They expressed understanding. Dec, Idiopathic guttate hypomelanosis (ICD-10 - L81.8 ) Benign, reassurance Dec, Skin tag (ICD-10 - L91.8) Benign, reassurance Dec, Mays angioma (ICD-10 - D18.01) Benign, reassurance Dec, Seborrheic keratoses (ICD-10 - L82.1) Benign Lesion Counseling. The patient was extensively counseled regarding the benign nature of the lesion but that skin cancer may arise in this area just as it would anywhere on their skin. For that reason, return to clinic was recommended for any acute changes, itching, burning, or bleeding. The patient was educated that benign lesions are not a covered insurance benefit and treatment would be elective and cosmetic. They expressed understanding. Dec, Seborrheic keratoses, inflamed (ICD-10 - L82.0) Cryotherapy x [ THREE ] number of sites. Schuyler protocol was followed in compliance with [facility] standards. Patient was counseled regarding the indication for treatment (precancerous state for actinic keratosis or cosmetic reasons if done for seborrheic keratoses, acrochordons or warts) as well as, the method and expected results to include compromise of the skin barrier, bleeding, scarring/white area, redness at site, lesion recurrence, and pain. Patient was consented to the risks and benefits of the procedure and gave informed consent. Lesion(s) with locations as indicated in the physical examination were treated. Lesion(s) were treated with 2 cycles of liquid nitrogen with a thaw time of at least ten seconds. Therapy was applied in a pulsed fashion to minimize collateral tissue injury. Patient was instructed to use Vaseline ointment to the area(s) until healed. Patient tolerated the procedure well and left in stable condition. Pain before and after the procedure were assessed to not be significantly different than baseline. Dec, Actinic keratosis (ICD-10 - L57.0) Cryotherapy x [ ONE ] number of sites. Schuyler protocol was followed in compliance with [facility] standards. Patient was counseled regarding the indication for treatment (precancerous state for actinic keratosis or cosmetic reasons if done for seborrheic keratoses, acrochordons or warts) as well as, the method and expected results to include compromise of the skin barrier, bleeding, scarring/white area, redness at site, lesion recurrence, and pain. Patient was consented to the risks and benefits of the procedure and gave informed consent. Lesion(s) with locations as indicated in the physical examination were treated. Lesion(s) were treated with 2 cycles of liquid nitrogen with a thaw time of at least ten seconds. Therapy was applied in a pulsed fashion to minimize collateral tissue injury. Patient was instructed to use Vaseline ointment to the area(s) until healed. Patient tolerated the procedure well and left in stable condition. Pain before and after the procedure were assessed to not be significantly different than baseline. Dec, Lichen simplex chronicus (ICD-10 - L28.0) Dec, Melanocytic nevus of skin (ICD-10 - D22.9) Reminded to avoid the sun and tanning, use sun screens regularly when spending time [id number], and perform self-examinations monthly to watch for any change in the appearance of your moles. If you notice any changes in color, appearance, symptoms of moles, you should contact the office for an appointment to have change evaluated as soon as possible. PLAN OF TREATMENT Medication Medication Name Sig Start Date Stop Date Triamcinolone Acetonide 0.1 % 1 application Externally Twice a day for 10 days Dec, Treatment Notes Assessment Notes Clinical Notes Skin cancer screening Patient counseled on signs and symptoms of skin cancer including ABCDE's of Melanoma. Patient counseled to wear sunscreen or use sun protective clothing when outdoors. Avoid peak hours of sun between 10-2. Patient instructed to call with any new or changing lesions. Lentigines Benign Lesion Counse [place]. The patient was extensively counseled regarding the benign nature of the lesion but that skin cancer may arise in this area just as it would anywhere on their skin. For that reason, return to clinic was recommended for any acute changes, itching, burning, or bleeding. The patient was educated that benign lesions are not a covered insurance benefit and treatment would be elective and cosmetic. They expressed understanding. Idiopathic guttate hypomelanosis Benign, reassurance Skin tag Benign, reassurance Mays angioma Benign, reassurance Seborrheic keratoses Benign Lesion Couns eling. The patient was extensively counseled regarding the benign nature of the lesion but that skin cancer may arise in this area just as it would anywhere on their skin. For that reason, return to clinic was recommended for any acute changes, itching, burning, or bleeding. The patient was educated that benign lesions are not a covered insurance benefit and treatment would be elective and cosmetic. They expressed understanding. Seborrheic keratoses, inflamed Cryothera py x [ THREE ] number of sites. Schuyler protocol was followed in compliance with [facility] standards. Patient was counseled regarding the indication for treatment (precancerous state for actinic keratosis or cosmetic reasons if done for seborrheic keratoses, acrochordons or warts) as well as, the method and expected results to include compromise of the skin barrier, bleeding, scarring/white area, redness at site, lesion recurrence, and pain. Patient was consented to the risks and benefits of the procedure and gave informed consent. Lesion(s) with locations as indicated in the physical examination were treated. Lesion(s) were treated with 2 cycles of liquid nitrogen with a thaw time of at least ten seconds. Therapy was applied in a pulsed fashion to minimize collateral tissue injury. Patient was instructed to use Vaseline ointment to the area(s) until healed. Patient tolerated the procedure well and left in stable condition. Pain before and after the procedure were assessed to not be significantly different than baseline. Actinic keratosis Cryotherapy x [ ONE ] number of sites. Schuyler protocol was followed in compliance with [facility] standards. Patient was counseled regarding the indication for treatment (precancerous state for actinic keratosis or cosmetic reasons if done for seborrheic keratoses, acrochordons or warts) as well as, the method and expected results to include compromise of the skin barrier, bleeding, scarring/white area, redness at site, lesion recurrence, and pain. Patient was consented to the risks and benefits of the procedure and gave informed consent. Lesion(s) with locations as indicated in the physical examination were treated. Lesion(s) were treated with 2 cycles of liquid nitrogen with a thaw time of at least ten seconds. Therapy was applied in a pulsed fashion to minimize collateral tissue injury. Patient was instructed to use Vaseline ointment to the area(s) until healed. Patient tolerated the procedure well and left in stable condition. Pain before and after the procedure were assessed to not be significantly different than baseline. Melanocytic nevus of skin Reminded to av oid the sun and tanning, use sun screens regularly when spending time [id number], and perform self-examinations monthly to watch for any change in the appearance of your moles. If you notice any changes in color, appearance, symptoms of moles, you should contact the office for an appointment to have change evaluated as soon as possible. Next Appt Details Spring 2021 Reason:FBSE Provider Name:Elvis Carcamo, 2020-12 02:30:00 PM, [address], , [place], [address], Provider Name:Elvis Carcamo, 2021-03 10:30:00 AM, [address], , [place], [address], Provider Name:Dalia Latham, 08:15:00 AM, [address] [place] [address], , [place], [address], Follow Up:Spring 2021FBSE Insurance Providers Payer Name Payer Address Payer Phone Insured Name Patient Relati onship to Insured Coverage Start Date Coverage End Date BCBS CHRISTOPHER TOSCANO O [id number] [facility] [place] [facility] [place] [address] ALETA PAUL self
--- OUTSIDE RECORDS SUMMARY | 2021-01-09 14:49 | CCD ---
Author Author [facility] Organization [facility] Address Unknown Phone Unavailable Care Team Providers Care Hotel Maid Name Role Phone Elvis Carcamo Unavailable PROBLEMS Type Condition ICD9-CM Code [id number] Code Onset Dates Condition S tatus W/U Status Risk SNOMED Code Notes Problem Hypoglycemia E16.2 Active confirmed 4887847 03 Problem Kidney transplant status Z94.0 Active confirmed 727403109 Problem Urinary incontinence, overflow N39.490 Active confi rmed 359930415 Problem Chronic fatigue R53.82 Active confirmed 8422 9001 Problem 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 Active confirmed 239820971 Problem Vaginal atrophy N95.2 Active confirmed 2971 46663 Problem COVID-19 U07.1 Active confirmed 67220618474 3016334 Problem Tinnitus, unspecified laterality H93.19 Active conf irmed 66363402 Problem Sleep disturbance G47.9 Active confirmed 53 600635 Problem Acquired hyperlipoproteinemia E78.5 Active confirm ed 5229478 Problem Renal transplant recipient Z94.0 Active confirmed 208591465 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 conf irmed 1726855 Problem Skin cancer screening Z12.83 Active confirmed 868749280 Problem Actinic keratosis L57.0 Active confirmed 20 5194290 Problem Mays angioma D18.01 Active confirmed 07392 01 Problem Leukopenia, unspecified type D72.819 Active confirm ed 45348300 Problem Lichen simplex chronicus L28.0 Active confirmed 53618649 Problem Melanocytic nevus of skin D22.9 Active confirmed 898466523 Problem CKD (chronic kidney disease), stage III N18.3 Active confirmed 083338854 Problem Unilateral hearing loss H91.90 Active confirmed 61017629 Problem Seborrheic keratoses L82.1 Active confirmed 245499905 Problem Seborrheic keratoses, inflamed L82.0 Active confir med 896000780 Problem Skin tag L91.8 Active confirmed 152934917 Problem Lentigines L81.4 Active confirmed 375454434 ALLERGIES No Known Allergies ENCOUNTERS from 1960 to 2020-12-30 Encounter Location Date Provider Diagnosis [id number] [place] [address] Dec, Elvis Carcamo COVID-19 U07.1 ; Pneumonia due to [place] virus disease 2019 J12.82 ; Left-sided chest pain R07.9 and Left-sided headache R51.9 IMMUNIZATIONS No Information SOCIAL HISTORY Tobacco Use: Social History Observation Description Date Details (start date - stop date) Never Smoker Sex Assigned At : Social History Observation Description Sex Assigned At Unknown Language: Question Answer Notes Languages spoken: Kinyarwanda Sexual Hx: Question Answer Notes Had sex [...] FOR REFERRAL No Information VITAL SIGNS Weight 154 lbs Dec, Height 68 in Dec, BMI 23.41 kg/m2 Dec, Heart Rate 94 /min Dec, Respiratory Rate 20 /min Dec, Temperature 97.5 degrees Fahrenheit Dec, Oximetry 98 Dec, Blood pressure systolic 116 mm Hg Dec, Blood pressure diastolic 66 mm Hg Dec, MEDICATIONS Medication SIG (Take, Route, Frequency, Duration) Notes Start Da te End Date Status Clotrimazole 10 MG 1 moon Mouth/Throat Five times a day Not-Taking Triamcinolone Acetonide 0.1 % 1 application Externally Twice a day for 10 days 13 Dec, 2020 Active Biotin 1000 MCG 1 tablet Orally Once a day for 90 day(s) 0 8 Dec, 2019 Active Tacrolimus 1 MG 3 in the am 4 pm Orally bid Active Mycophenolate Mofetil 500 MG 1 tab Orally Twice a day Active Biotin 5000 Daily Active Omeprazole 20 MG 1 capsule 30 minutes before morning meal Orally Once a day as needed for 30 day(s) Dec, Not-Taking Estradiol 0.1 MG/GM 1/2 gram Vaginal twice weekly for 90 day(s) Sep, Not-Taking Docusate Sodium 100 MG 2 tabs Orally Daily Not-Taking Mycelex moon orally Daily Not-T aking PROCEDURES No Information RESULTS Component Value Reference Range CBC - Complete Blood Count Reviewed date:12/29/2020 16:08:21 Interpretation: Performing Lab:[facility] [address] [address] , ,[place] [address] WHITE BLOOD COUNT 3.2 4.0-10.0 RED BLOOD COUNT 4.44 4.00-5.40 HEMOGLOBIN 12.0 12.0-15.5 HEMATOCRIT 37.1 36.0-47.0 MEAN CORPUSCULAR VOLUME 83.6 80.0-96.0 MEAN CORPUSCULAR HEMOGLOBIN 27.0 27.0-33.0 MEAN CORPUSCULAR HGB CONC 32.3 32.0-36.5 RED CELL DISTRIBUTION WIDTH 13.5 11.5-14.5 PLATELET COUNT, AUTOMATED 186 150-450 Comprehensive Metabolic Profile (CMP) Reviewed date:12/29/2020 16:08:21 Interpretation: Performing Lab:[facility] [address] [address] , ,[place] [address] GLUCOSE, FASTING 101 70-100 BLOOD UREA NITROGEN 18 7-18 CREATININE FOR GFR 1.12 0.55-1.30 GLOMERULAR FILTRATION RATE 53.0 >51 SODIUM LEVEL 136 136-145 POTASSIUM SERUM 4.2 3.5-5.1 CHLORIDE LEVEL 103 98-107 CARBON DIOXIDE LEVEL 29 21-32 CALCIUM LEVEL 9.0 8.5-10.1 AST/SGOT 18 7-37 ALT/SGPT 24 12-78 ALKALINE PHOSPHATASE 65 45-117 BILIRUBIN,TOTAL 0.4 0.2-1.0 TOTAL PROTEIN 6.7 6.4-8.2 ALBUMIN 3.6 3.2-5.2 ALBUMIN/GLOBULIN RATIO 1.2 1.2-2.2 C REACTIVE PROTEIN QUANTITATIV (At [facility]) Reviewed date:12/29/2020 16:08:21 Interpretation: Performing Lab:[facility] [address] [address] , ,[place] [address] C REACTIVE PROTEIN QUANTITATIV 0.30 0.00-0.30 DDIMER QUANT Reviewed date:12/29/2020 16:08:21 Interpretation: Performing Lab:[facility] [address] [address] , ,[place] [address] D-DIMER QUANT 1407.80 <500 FERRITIN Reviewed date:12/29/2020 16:08:21 Interpretation: Performing Lab:[facility] [address] [address] , ,[facility] FERRITIN 48 8-252 REASON FOR VISIT covid f/u MEDICAL (GENERAL) HISTORY Type Description Date Medical History polycystic kidney disease, s /p kidney transplant [facility], mail delivery supervisor is Dr Olivarez ([facility]) Medical History hyperlipidemia--LDL>200 (12 0), not treated, LDL 180 (06/29), pt declines statin tx Medical History tinnitus/unilateral hearing loss Medical History + RF (low titer) 01/28 Medical History CKD 3, GFR ~ 40 Medical History (mild) Covid pneumonia 11/30: +Covid test, small infiltrate on CXR, received monoclonals 11/30 Surgical History kidney transplant 06/22 Surgical History meniscus 2011 Surgical History colonography (neg)--endoscopy not done d ue to kidney size 2011 Hospitalization History No Hospitalization history informati on Goals Section No Information Health Concerns No Information MEDICAL EQUIPMENT No Information MENTAL STATUS No Information FUNCTIONAL STATUS No Information ASSESSMENTS Encounter Date Diagnosis Assessment Notes Treatment Notes Treatm ent Clinical Notes Dec, COVID-19 (ICD-10 - U07.1) Dec, Pneumonia due to Coronavirus disease 2019 (ICD-1 0 - J12.82) Dec, Left-sided chest pain (ICD-10 - R07.9) Dec, Left-sided headache (ICD-10 - R51.9) PLAN OF TREATMENT Treatment Notes Test Name Order Date PLZ CHEST 2 VIEW 2020-12-28 Next Appt Details 4 Weeks Reason: Provider Name:Elvis Carcamo, 2021-01 02:30:00 PM, [address], , [place], [address], Provider Name:Elvis Carcamo, 2021-03 10:30:00 AM, [address], , [place], [address], Provider Name:Dalia Latham, 08:15:00 AM, [address] [place] [address], , [place], [address], Insurance Providers Payer Name Payer Address Payer Phone Insured Name Patient Relati onship to Insured Coverage Start Date Coverage End Date BCBS CHRISTOPHER TOSCANO PPO [phone] [facility] [place] [address] ALETA PAUL self
--- OUTSIDE RECORDS SUMMARY | 2021-01-09 14:49 | CCD ---
Author Author [facility] Organization [facility] Address Unknown Phone Unavailable Care Team Providers Care Quality Assurance Monitor Body Name Role Phone Adlily Elvis Unavailable PROBLEMS Type Condition ICD9-CM Code [id number] Code Onset Dates Condition S tatus W/U Status Risk SNOMED Code Notes Problem Tinnitus, unspecified laterality H93.19 Active conf irmed 20211124 Problem CKD (chronic kidney disease), stage III N18.3 Active confirmed 618521752 Problem Leukopenia, unspecified type D72.819 Active confirm ed 87478120 Problem Kidney transplant status Z94.0 Active confirmed 617751117 Problem 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 Active confirmed 959098560 Problem Acquired hyperlipoproteinemia E78.5 Active confirm ed 2508168 Problem Sleep disturbance G47.9 Active confirmed 53 066327 Problem Unilateral hearing loss H91.90 Active confirmed 84173182 Problem Hypoglycemia E16.2 Active confirmed 3941436 03 Problem Chronic fatigue R53.82 Active confirmed 8422 9001 Problem Vaginal atrophy N95.2 Active confirmed 2971 61164 Problem Urinary incontinence, overflow N39.490 Active confi rmed 663545203 ALLERGIES No Known Allergies ENCOUNTERS from 1960 to 2020-12-03 Encounter Location Date Provider Diagnosis [address] [place] [address] Nov, Elvis Carcamo IMMUNIZATIONS No Information SOCIAL HISTORY Tobacco Use: Social History Observation Description Date Details (start date - stop date) Never Smoker Sex Assigned At : Social History Observation Description Sex Assigned At Unknown Language: Question Answer Notes Languages spoken: Georgian Sexual Hx: Question Answer Notes Had sex [...] Information RESULTS No Results REASON FOR VISIT covid + MEDICAL (GENERAL) HISTORY Type Description Date Medical History polycystic kidney disease, s /p kidney transplant [facility], electronic imager is Dr Olivarez ([facility]) Medical History hyperlipidemia--LDL>200 (1/2 0), not treated, [...] No Information FUNCTIONAL STATUS No Information ASSESSMENTS No Information PLAN OF TREATMENT Next Appt Details Provider Name:Jaclyn Vang, 2021-01-25 02:45:00 PM, [address] [facility], , [place], [address], Provider Name:Elvis Carcamo, 2021-03 10:30:00 AM, [address], , [place], [address], Insurance Providers Payer Name Payer Address Payer Phone Insured Name Patient Relati onship to Insured Coverage Start Date Coverage End Date BCBS CHRISTOPHER TOSCANO PPO [id number] [facility] [place] [address] ALETA PAUL self
--- OUTSIDE RECORDS SUMMARY | 2021-01-09 14:49 | CCD ---
Author Author [facility] Organization [facility] Address Unknown Phone Unavailable Care Team Providers Care Asp Developer Name Role Phone Adlily Elvis Unavailable PROBLEMS Type Condition ICD9-CM Code [id number] Code Onset Dates Condition S tatus W/U Status Risk SNOMED Code Notes Problem Tinnitus, unspecified laterality H93.19 Active conf irmed 90473500 Problem CKD (chronic kidney disease), stage III N18.3 Active confirmed 594351115 Problem Leukopenia, unspecified type D72.819 Active confirm ed 68811220 Problem Kidney transplant status Z94.0 Active confirmed 222670223 Problem 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 Active confirmed 877268848 Problem Acquired hyperlipoproteinemia E78.5 Active confirm ed 5976161 Problem Sleep disturbance G47.9 Active confirmed 53 178477 Problem Unilateral hearing loss H91.90 Active confirmed 37996995 Problem Hypoglycemia E16.2 Active confirmed 1084446 03 Problem Chronic fatigue R53.82 Active confirmed 8422 9001 Problem Vaginal atrophy N95.2 Active confirmed 2971 83804 Problem Urinary incontinence, overflow N39.490 Active confi rmed [id number] ALLERGIES No Known Allergies ENCOUNTERS from 1960 to 2020-12-17 Encounter Location Date Provider Diagnosis [address] [place] [address] Dec, Elvis Carcamo IMMUNIZATIONS No Information SOCIAL HISTORY Tobacco Use: Social History Observation Description Date Details (start date - stop date) Never Smoker Sex Assigned At : Social History Observation Description Sex Assigned At Unknown Language: Question Answer Notes Languages spoken: Belizean Sexual Hx: Question Answer Notes Had sex [...] Information RESULTS No Results REASON FOR VISIT labs /covid MEDICAL (GENERAL) HISTORY Type Description Date Medical History polycystic kidney disease, s /p kidney transplant [facility], manager resource is Dr Olivarez ([facility]) Medical History hyperlipidemia--LDL>200 (1/2 0), not treated, [...] PLAN OF TREATMENT Next Appt Details Provider Name:Elvis Carrilloandrea, 2020-12 02:30:00 PM, [address], , [place], [address], Provider Name:Jaclyn Vang, 2021-01-25 02:45:00 PM, [address] [facility], , [place], [address], Provider Name:Elvis Carcamo, 2021-03 10:30:00 AM, [address], , [place], [address], Insurance Providers Payer Name Payer Address Payer Phone Insured Name Patient Relati onship to Insured Coverage Start Date Coverage End Date BCBS [employer]RISTOPHER [employer]OS[employer]O PPO [phone] [facility] [place] [id number] ALETA PAUL self
--- OUTSIDE RECORDS SUMMARY | 2021-01-09 14:50 | CCD ---
Author Author [facility] Organization [facility] Address Unknown Phone Unavailable Care Team Providers Care Rn Training Name Role Phone Adlily Elvis Unavailable PROBLEMS Type Condition ICD9-CM Code [id number] Code Onset Dates Condition S tatus W/U Status Risk SNOMED Code Notes Problem Tinnitus, unspecified laterality H93.19 Active conf irmed 48894188 Problem CKD (chronic kidney disease), stage III N18.3 Active confirmed 644849373 Problem Leukopenia, unspecified type D72.819 Active confirm ed 09316341 Problem Kidney transplant status Z94.0 Active confirmed 655647331 Problem 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 Active confirmed 646618566 Problem Acquired hyperlipoproteinemia E78.5 Active confirm ed 3586365 Problem Sleep disturbance G47.9 Active confirmed 53 310248 Problem Unilateral hearing loss H91.90 Active confirmed 92499393 Problem Hypoglycemia E16.2 Active confirmed 8074091 03 Problem Chronic fatigue R53.82 Active confirmed 8422 9001 Problem Vaginal atrophy N95.2 Active confirmed 2971 12719 Problem Urinary incontinence, overflow N39.490 Active confi rmed [id number] ALLERGIES No Known Allergies ENCOUNTERS from 1960 to 2020-11-05 Encounter Location Date Provider Diagnosis [address] [place] [address] Oct, Elvis Carcamo Kidney transplant status Z94.0 IMMUNIZATIONS No Information SOCIAL HISTORY Tobacco Use: Social History Observation Description Date Details (start date - stop date) Never Smoker Sex Assigned At : Social History Observation Description Sex Assigned At Unknown Language: Question Answer Notes Languages spoken: Nepalese Sexual Hx: Question Answer Notes Had sex [...] Date Status Biotin 5000 Daily Active Mycelex mono orally Daily Not-T aking Biotin 1000 MCG [...] Information RESULTS No Results REASON FOR VISIT tacrolimus level/standing order. MEDICAL (GENERAL) HISTORY Type Description Date Medical History polycystic kidney disease, s /p kidney transplant [facility], eyeglass cutter is Dr Olivarez ([facility]) Medical History hyperlipidemia--LDL>200 (1/2 0), not treated, LDL 180 (06/29), pt declines statin tx Medical History tinnitus/unilateral hearing loss Medical History + RF (low titer) 01/28 Medical History CKD 3, GFR ~ 40 Surgical History kidney transplant 06/22 Surgical History meniscus 2011 Surgical History colonography (neg)--endoscopy not done d ue to kidney size 2012 Hospitalization History No Hospitalization history informati on Goals Section No Information Health Concerns No Information MEDICAL EQUIPMENT No Information MENTAL STATUS No Information FUNCTIONAL STATUS No Information ASSESSMENTS Encounter Date Diagnosis Assessment Notes Treatment Notes Treatm ent Clinical Notes Oct, Kidney transplant status (ICD-10 - Z94.0) PLAN OF TREATMENT Future Test Test Name Order Date FK 506 [facility] [id number] Next Appt Details Provider Name:Jaclyn Vang, 2021-01-25 02:45:00 PM, [address] [place] [address], , [place], [address], Provider Name:Elvis Carcamo, 2021-03 10:30:00 AM, [address], , [place], [address], Insurance Providers Payer Name Payer Address Payer Phone Insured Name Patient Relati onship to Insured Coverage Start Date Coverage End Date BCBS [place] [employer] PPO [phone] [facility] [place] [address] ALETA PAUL self
--- OUTSIDE RECORDS SUMMARY | 2021-01-09 14:50 | CCD ---
Author Author [facility] Organization [facility] Address Unknown Phone Unavailable Support Name Relationship Address Phone SELF EMPLOYED Next Of Kin [address] [place] [address] [address] [place]UL Next Of [address] [place] [address] Zev PAUL Next Of Kin [address] [place] [address] [place] [address] [phone] Re-disclosure Warning The records that you are about to access may contain information from federally-assisted alcohol or drug abuse programs. If such information is present, then the following federally mandated warning applies: This information has been disclosed to you from records protected by federal confidentiality rules (42 CFR part 2). The federal rules prohibit you from making any further disclosure of this information unless further disclosure is expressly permitted by the written consent of the person to whom it pertains or as otherwise permitted by 42 CFR part 2. A general authorization for the release of medical or other information is NOT sufficient for this purpose. The Federal rules restrict any use of the information to criminally investigate or prosecute any alcohol or drug abuse patient.The records that you are about to access may contain highly sensitive health information, the redisclosure of which is protected by Article 27-F of the [facility] Public Health law. If you continue you may have access to information: Regarding HIV / AIDS; Provided by facilities licensed or operated by the [facility] Office of Mental Health; or Provided by the [facility] Office for People With Developmental Disabilities. If such information is present, then the following [facility] mandated warning applies: This information has been disclosed to you from confidential records which are protected by state law. State law prohibits you from making any further disclosure of this information without the specific written consent of the person to whom it pertains, or as otherwise permitted by law. Any unauthorized further disclosure in violation of state law may result in a fine or senior living sentence or both. A general authorization for the release of medical or other information is NOT sufficient authorization for further disc losure. Family History Family Member Name Family Member Gender Family Member Status Date o f Status Description Data Source(s) Unknown Unknown Problem [facility] ([facility] Encounters Encounter Providers Location Date Indications Data Source(s ) Outpatient [address] [facility] [id number] 12/28/2020 12:00:00 AM EDT [facility] Outpatient [address] [facility] [id number] 12/22/2020 12:00:00 AM EDT [facility] ([facility]) Unknown [address] [facility] [id number] 12/14/2020 12:00:00 AM EDT eCW[facility] ([facility]) TeleMedicine Phone E/M by Phys 5-[address] [place] [phone] 12/01/2020 12:00:00 AM EDT eCW1 (Critical access hospital) Unknown [address] [facility] [id number] 11/29/2020 12:00:00 AM EDT [facility]) Unknown [address] [facility] [id number] 10/11/2020 12:00:00 AM EDT [facility]) Outpatient [address] [facility] [id number] 09/23/2020 12:00:00 AM EDT [facility]) Unknown [address] [facility] [id number] 09/20/2020 12:00:00 AM EDT [facility]) Unknown [address] [facility] [id number] 09/08/2020 12:00:00 AM EDT [facility]) [place] [address] [facility] [address] 09/08/2020 12:00:00 AM EDT [facility] [place] [address] [facility] [address] 12/18/2019 12:00:00 AM EDT [facility] [address] [facility] [address] 11/25/2019 12:00:00 AM EDT eCW[facility] ([facility]) Medications Medication Brand Name Start Date Product Form Dose Route Admi nistrative Instructions Pharmacy Instructions Status Indications Reaction Description Data Source(s) Triamcinolone Acetonide 0.001 MG/MG Topi marj Ointment Triamcinolone Acetonide 0.1 % Triamcinolone Acetonide 0.1 % 12/22/2020 12:00:00 AM EDT 1.0 {application} active Triamcinolone Aceton nury 0.1 % eCW1 ([facility]) Triamcinolone Acetonide 0.001 MG/MG Topi marj Ointment Triamcinolone Acetonide 0.1 % Triamcinolone Acetonide 0.1 % 12/22/2020 12:00:00 AM EDT 1.0 {application} active Triamcinolone Aceton nury 0.1 % eCW1 ([facility]) Omeprazole 20 MG Delayed Release Oral Capsule Omeprazole 20 MG 12/18/2019 12:00:00 AM EDT suspended Omepr azole 20 MG eCW1 ([facility]) Biotin 1 MG Oral Tablet Biotin 1000 MCG Biotin 1000 MCG 12/18/2019 12:00:00 AM EDT 1.0 {tablet} active Biotin 1000 MCG eCW1 ([facility]) Omeprazole 20 MG Delayed Release Oral Capsule Omeprazole 20 MG 12/18/2019 12:00:00 AM EDT active Omeprazo le 20 MG eCW1 ([facility]) Omeprazole 20 MG Delayed Release Oral Capsule Omeprazole 20 MG 12/18/2019 12:00:00 AM EDT active Omeprazo le 20 MG eCW1 ([facility]) Biotin 1 MG Oral Tablet Biotin 1000 MCG Biotin 1000 MCG 12/18/2019 12:00:00 AM EDT 1.0 {tablet} active Biotin 1000 MCG eCW1 ([facility]) Omeprazole 20 MG Delayed Release Oral Capsule Omeprazole 20 MG 12/18/2019 12:00:00 AM EDT active Omeprazo le 20 MG eCW1 ([facility]) Biotin 1 MG Oral Tablet Biotin 1000 MCG Biotin 1000 MCG 12/18/2019 12:00:00 AM EDT 1.0 {tablet} active Biotin 1000 MCG eCW1 ([facility]) Biotin 1 MG Oral Tablet Biotin 1000 MCG Biotin 1000 MCG 12/18/2019 12:00:00 AM EDT 1.0 {tablet} active Biotin 1000 MCG eCW1 ([facility]) Biotin 1 MG Oral Tablet Biotin 1000 MCG Biotin 1000 MCG 12/18/2019 12:00:00 AM EDT 1.0 {tablet} active Biotin 1000 MCG eCW1 ([facility]) Biotin 1 MG Oral Tablet Biotin 1000 MCG Biotin 1000 MCG 12/18/2019 12:00:00 AM EDT 1.0 {tablet} active Biotin 1000 MCG eCW1 ([facility]) Omeprazole 20 MG Delayed Release Oral Capsule Omeprazole 20 MG 12/18/2019 12:00:00 AM EDT active Omeprazo le 20 MG eCW1 ([facility]) Omeprazole 20 MG Delayed Release Oral Capsule Omeprazole 20 MG 12/18/2019 12:00:00 AM EDT active Omeprazo le 20 MG eCW1 ([facility]) Biotin 1 MG Oral Tablet Biotin 1000 MCG Biotin 1000 MCG 12/18/2019 12:00:00 AM EDT 1.0 {tablet} active Biotin 1000 MCG eCW1 ([facility]) Biotin 1 MG Oral Tablet Biotin 1000 MCG Biotin 1000 MCG 12/18/2019 12:00:00 AM EDT 1.0 {tablet} active Biotin 1000 MCG eCW1 ([facility]) Omeprazole 20 MG Delayed Release Oral Capsule Omeprazole 20 MG 12/18/2019 12:00:00 AM EDT active Omeprazo le 20 MG eCW1 ([facility]) Biotin 1 MG Oral Tablet Biotin 1000 MCG Biotin 1000 MCG 12/18/2019 12:00:00 AM EDT 1.0 {tablet} active Biotin 1000 MCG eCW1 ([facility]) Biotin 1 MG Oral Tablet Biotin 1000 MCG Biotin 1000 MCG 12/18/2019 12:00:00 AM EDT 1.0 {tablet} active Biotin 1000 MCG eCW1 ([facility]) Omeprazole 20 MG Delayed Release Oral Capsule Omeprazole 20 MG 12/18/2019 12:00:00 AM EDT active Omeprazo le 20 MG eCW1 ([facility]) Omeprazole 20 MG Delayed Release Oral Capsule Omeprazole 20 MG 12/18/2019 12:00:00 AM EDT suspended Omepr azole 20 MG eCW1 ([facility]) Omeprazole 20 MG Delayed Release Oral Capsule Omeprazole 20 MG 12/18/2019 12:00:00 AM EDT active Omeprazo le 20 MG eCW1 ([facility]) Omeprazole 20 MG Delayed Release Oral Capsule Omeprazole 20 MG 12/18/2019 12:00:00 AM EDT active Omeprazo le 20 MG eCW1 ([facility]) Biotin 1 MG Oral Tablet Biotin 1000 MCG Biotin 1000 MCG 12/18/2019 12:00:00 AM EDT 1.0 {tablet} active Biotin 1000 MCG eCW1 ([facility]) Insurance Providers Payer name Policy type / Coverage type Policy ID Covered libertarian ID Covered libertarian's relationship to nieto Policy Nieto Plan Information [id number] [facility] HMO/PPO/POS [id number] EXCELLUS H [id number] Self [id number] [place]/307 [id number] SP [id number] [place]/307 [id number] SP [id number] [place] 302/307 [id number] SP [id number] B/S BLUE PPO/HSA (33) [id number] MEDICARE [id number] SP [id number] T MEDICARE SECOND PAYER (88) [id number] [facility]POS [id number] B/S BLUE PPO/HSA (33) [id number] EXCELLUS H [id number] Spouse [id number] [place] 302/307 [id number] [place]BS [place]PO 302/307 [id number] SP [id number] BCBS OF [place] 306/806 [id number] EXCELLUS BCBS B [id number] S [id number] [place] 306/806 [id number] SP [id number] [place] 306/806 [id number] SP [id number] [place] 306/806 [id number] BCBS [place] 302/307 [id number] SP [id number] SELF PAY ONLY UNAVAILABLE SP UNAV AILABLE [facility] [place] [facility] (HMO) [id number] Self SPECIAL ACCOUNT (8) UNAVAILABLE UNAVAILABLE MEDICARE [id number] SP [id number] T Problems, Conditions, and Diagnoses Code Display Name Description Problem Type Effective Dates Data Source(s) U07.1 [id number] COVID-19 Problem 12/28/2020 12:00: 00 AM EDT eCW1 ([facility]) L81.4 [id number] Lentigines Problem 12/22/2020 12:00:00 AM ED T eCW1 ([facility]) L91.8 [id number] Skin tag Problem 12/22/2020 12:00:00 AM ED T eCW1 ([facility]) L82.0 [id number] Seborrheic keratoses, inflamed Problem 12/22/2020 12:00:00 AM EDT eCW1 ([facility]) L82.1 [id number] Seborrheic keratoses Problem 12/22/2020 12:0 0:00 AM EDT eCW1 ([facility]) D22.9 550622377 Melanocytic nevus of skin Problem 12/22/2020 12:00:00 AM EDT eCW1 ([facility]) L28.0 78263769 Lichen simplex chronicus Problem 12/22/2020 12:00:00 AM EDT eCW1 ([facility]) D18.01 8907136 Mays angioma Problem 12/22/2020 12:00:00 A M EDT eCW1 ([facility]) L57.0 518388908 Actinic keratosis Problem 12/22/2020 12:00:0 0 AM EDT eCW1 ([facility]) Z12.83 770959135 Skin cancer screening Problem 12/22/2020 12: 00:00 AM EDT eCW1 ([facility]) L81.8 5704239 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 12:00:00 AM EDT eCW1 ([facility]) Z94.0 263636662 Renal transplant recipient Problem 12:00:00 AM EDT eCW1 ([facility]) G47.9 59803253 Sleep disturbance Problem 12/18/2019 12:00:0 0 AM EDT eCW1 ([facility]) E53.8 315934837 Biotin deficiency disease Problem 12/18/2019 12:00:00 AM EDT eCW1 ([facility]) Surgeries/Procedures No Information Results ID Date Data Source FERRITIN 12/29/2020 12:00:00 AM EDT eCW1 ([facility]) Name Value Range Interpretation Code Description Data Isabella rce(s) Supporting Document(s) 48 2-151 FERRITIN eCW1 ([facility]) ID Date Data Source DDIMER QUANT 12/29/2020 12:00:00 AM EDT eCW1 ([facility]) Name Value Range Interpretation Code Description Data Isabella rce(s) Supporting Document(s) 1407.80 <500 D-DIMER QUANT eCW1 ([facility]) ID Date Data Source C REACTIVE PROTEIN QUANTITATIV (At [facility]) 12/29/2020 12:00 :00 AM EDT eCW1 ([facility]) Name Value Range Interpretation Code Description Data Isabella rce(s) Supporting Document(s) 0.30 0.00-0.30 C REACTIVE PROTEIN QUANTI TATIV eCW1 ([facility]) ID Date Data Source Comprehensive Metabolic Profile (CMP) 12/29/2020 12:00:00 AM EDT eCW1 ([facility]) Name Value Range Interpretation Code Description Data Isaeblla rce(s) Supporting Document(s) 18 7-18 BLOOD UREA NITROGEN eCW1 ([facility]) 1.12 0.55-1.30 CREATININE FOR GFR eCW1 ([facility]) 101 70-100 GLUCOSE, FASTING eCW1 ([facility] hospital) 103 98-107 CHLORIDE LEVEL eCW1 ([facility]) 53.0 >51 GLOMERULAR FILTRATION RATE eCW 1 ([facility]) 4.2 3.5-5.1 POTASSIUM SERUM eCW1 ([facility]) 136 136-145 SODIUM LEVEL eCW1 ([facility]) 18 7-37 AST/SGOT eCW1 ([facility]) 24 12-78 ALT/SGPT eCW1 ([facility] access hospital) 9.0 8.5-10.1 CALCIUM LEVEL eCW1 ([facility]) 29 21-32 CARBON DIOXIDE LEVEL eCW1 ([facility]) 0.4 0.2-1.0 BILIRUBIN,TOTAL eCW1 ([facility]) 6.7 6.4-8.2 TOTAL PROTEIN eCW1 ([facility]) 65 45-117 ALKALINE PHOSPHATASE eCW1 ([facility]) 3.6 3.2-5.2 ALBUMIN eCW1 ([facility] hospital) 1.2 1.2-2.2 ALBUMIN/GLOBULIN RATIO eCW1 ([facility]) ID Date Data Source CBC - Complete Blood Count 12/29/2020 12:00:00 AM EDT eCW1 ( [facility]) Name Value Range Interpretation Code Description Data Isabella rce(s) Supporting Document(s) 3.2 4.0-10.0 WHITE BLOOD COUNT eCW1 ([facility]) 4.44 4.00-5.40 RED BLOOD COUNT eCW1 ([facility]) 37.1 36.0-47.0 HEMATOCRIT eCW1 ([facility]) 12.0 12.0-15.5 HEMOGLOBIN eCW1 ([facility]) 13.5 11.5-14.5 RED CELL DISTRIBUTION WID TH eCW1 ([facility]) 32.3 32.0-36.5 MEAN CORPUSCULAR HGB CONC eCW1 ([facility]) 27.0 27.0-33.0 MEAN CORPUSCULAR HEMOGLOB IN eCW1 ([facility]) 83.6 80.0-96.0 MEAN CORPUSCULAR VOLUME e CW1 ([facility]) 186 150-450 PLATELET COUNT, AUTOMATED eCW1 ([facility]) ID Date Data Source [id number] 11/29/2020 06:00:00 PM EDT [facility] Name Value Range Interpretation Code Description Data Isabella rce(s) Supporting Document(s) SARS coronavirus 2 RNA [Presence] in Res piratory specimen by MARII with probe detection POSITIVE [facility] This lab was ordered by [facility] a nd reported by [facility]. ID Date Data Source ADM CHEST 2 VIEW 12/23/2019 01:05:05 PM EDT eCW1 ([facility]) Name Value Range Interpretation Code Description Data Isabella rce(s) Supporting Document(s) ADM CHEST 2 VIEW eCW1 ([facility]) Procedure Social History Code Duration Value Status Description Data Source(s ) Smoking 12/28/2020 12:00:00 AM EDT Never Smoker completed Never S moker eCW1 ([facility]) Smoking 12/22/2020 12:00:00 AM EDT Never Smoker completed Never S moker eCW1 ([facility]) Smoking 09/23/2020 12:00:00 AM EDT Never Smoker completed Never S moker eCW1 ([facility]) Smoking 09/23/2020 12:00:00 AM EDT Never Smoker completed Never S moker eCW1 ([facility]) Smoking 09/23/2020 12:00:00 AM EDT Never Smoker completed Never S moker eCW1 ([facility]) Smoking 09/23/2020 12:00:00 AM EDT Never Smoker completed Never S moker eCW1 ([facility]) Smoking 09/23/2020 12:00:00 AM EDT Never Smoker completed Never S moker eCW1 ([facility]) Smoking 12/18/2019 12:00:00 AM EDT Never Smoker completed Never S moker eCW1 ([facility]) Smoking 12/18/2019 12:00:00 AM EDT Never Smoker completed Never S moker eCW1 ([facility]) Smoking 12/18/2019 12:00:00 AM EDT Never Smoker completed Never S moker eCW1 ([facility]) Smoking 12/18/2019 12:00:00 AM EDT Never Smoker completed Never S moker eCW1 ([facility]) Vital Signs ID Date Data Source UNK Name Value Range Interpretation Code Description Data Source(s) Body weight 154 [lb_av] 154 [lb_av] eCW1 ([facility]) Body height 68 [in_i] 68 [in_i] eCW1 ([facility]) Body mass index (BMI) [Ratio] 23.41 kg/m2 23.41 kg/m2 eCW1 ([facility]) Heart rate 94 /min 94 /min eCW1 ([facility]) Respiratory rate 20 /min 20 /min eCW1 ([facility]) Body temperature 97.5 [degF] 97.5 [degF] eCW1 ( [facility]) Systolic blood pressure 116 mm[Hg] 116 mm[Hg] e CW1 ([facility]) Diastolic blood pressure 66 mm[Hg] 66 mm[Hg] eCW1 ([facility]) Body weight 155.6 [lb_av] 155.6 [lb_av] eCW1 ([facility]) Body weight 70.58 kg 70.58 kg eCW1 ([facility]) Body height 68 [in_i] 68 [in_i] eCW1 ([facility]) Body mass index (BMI) [Ratio] 23.66 kg/m2 23.66 kg/m2 eCW1 ([facility]) Systolic blood pressure 122 mm[Hg] 122 mm[Hg] e CW1 ([facility]) Diastolic blood pressure 76 mm[Hg] 76 mm[Hg] eCW1 ([facility]) Body weight 155 [lb_av] 155 [lb_av] eCW1 ([facility]) Body height [in_i] eCW1 ([facility]) Body mass index (BMI) [Ratio] 23.57 kg/m2 23.57 kg/m2 eCW1 ([facility]) Heart rate 98 /min 98 /min eCW1 ([facility]) Respiratory rate 18 /min 18 /min eCW1 ([facility]) Body temperature 96.9 [degF] 96.9 [degF] eCW1 ( [facility]) Systolic blood pressure 116 mm[Hg] 116 mm[Hg] e CW1 ([facility]) Diastolic blood pressure 60 mm[Hg] 60 mm[Hg] eCW1 ([facility]) Body weight 155 [lb_av] 155 [lb_av] eCW1 ([facility]) Body height [in_i] eCW1 ([facility]) Body mass index (BMI) [Ratio] 23.57 kg/m2 23.57 kg/m2 eCW1 ([facility]) Heart rate 101 /min 101 /min eCW1 ([facility]) Respiratory rate 18 /min 18 /min eCW1 ([facility]) Body temperature 97.6 [degF] 97.6 [degF] eCW1 ( [facility]) Systolic blood pressure 110 mm[Hg] 110 mm[Hg] e CW1 ([facility]) Diastolic blood pressure 68 mm[Hg] 68 mm[Hg] eCW1 ([facility]) Patient Treatment Plan of Care Planned Activity Planned Date Details Description Data Source (s) Triamcinolone Acetonide 0.001 MG/MG Topical Ointment 021 12:00:00 AM EDT [facility]) Omeprazole 20 MG Delayed Release Oral Capsule 12/18/2019 12:00:00 A M EDT eCW1 ([facility]) Biotin 1 MG Oral Tablet 12/18/2019 12:00:00 AM EDT eCW1 ([facility]) Omeprazole 20 MG Delayed Release Oral Capsule 12/18/2019 12:00:00 A M EDT eCW1 ([facility]) Biotin 1 MG Oral Tablet 12/18/2019 12:00:00 AM EDT eCW1 ([facility]) Omeprazole 20 MG Delayed Release Oral Capsule 12/18/2019 12:00:00 A M EDT eCW1 ([facility]) Biotin 1 MG Oral Tablet 12/18/2019 12:00:00 AM EDT eCW1 ([facility]) Omeprazole 20 MG Delayed Release Oral Capsule 12/18/2019 12:00:00 A M EDT eCW1 ([facility]) Biotin 1 MG Oral Tablet 12/18/2019 12:00:00 AM EDT eCW1 ([facility])
[2021-01-09] MEDS ORDERED: MYCO500T (14:54)
[2021-01-09] MEDS ORDERED: TACR1CAP3 (14:54)
--- OUTSIDE RECORDS SUMMARY | 2021-01-09 15:48 | CCD ---
Author Author [facility] Organization [facility] Address Unknown Phone Unavailable Support Name Relationship Address Phone SELF EMPLOYED Next Of Kin [id number] [place] [address] DR PAUL Next Of Kin [address] [place] [address] Zev PAUL Next Of Kin [address] [place] [address] [place] [address] [phone] Re-disclosure Warning The records that you are [...] is protected by Article 27-F of the [facility] Public Health law. If you continue you may have access to information: Regarding HIV / AIDS; Provided by facilities licensed or operated by the [facility] Office of Mental Health; or Provided by the [facility] Office for People With Developmental Disabilities. If such information is present, then the following [facility] mandated warning applies: This information has been [...] law may result in a fine or long-term sentence or both. A general authorization for the release of medical or other information is NOT sufficient authorization for further disc losure. Family History Family Member Name Family Member Gender Family Member Status Date o f Status Description Data Source(s) Unknown Unknown Problem [facility] ([facility] Encounters Encounter Providers Location Date Indications Data Source(s ) Outpatient [address] [facility] [address] 12/28/2020 12:00:00 AM EDT eCW1 ([facility]) Outpatient [address] [facility] [address] 12/22/2020 12:00:00 AM EDT eCW1 ([facility]) Unknown [address] [facility] [address] 12/14/2020 12:00:00 AM EDT eCW1 ([facility]) TeleMedicine Phone E/M by Phys 5-[address] [place] [phone] 12/01/2020 12:00:00 AM EDT eCW1 ([facility]) Unknown [address] [facility] [address] 11/29/2020 12:00:00 AM EDT eCW1 ([facility]) Unknown [address] [facility] [address] 10/11/2020 12:00:00 AM EDT eCW1 ([facility]) Outpatient [address] [facility] [address] 09/23/2020 12:00:00 AM EDT eCW1 ([facility]) Unknown [address] [facility] [address] 09/20/2020 12:00:00 AM EDT eCW1 ([facility]) Unknown [address] [facility] [address] 09/08/2020 12:00:00 AM EDT eCW1 ([facility]) [place] [address] [facility] [place] [address] 09/08/2020 12:00:00 AM EDT eCW1 ([facility]) [place] [address] [facility] [place] [address] 12/18/2019 12:00:00 AM EDT eCW1 ([facility]) [facility] [address] [facility] [place] [address] 11/25/2019 12:00:00 AM EDT eCW1 ([facility]) Medications Medication Brand Name Start Date Product Form Dose Route Admi nistrative Instructions Pharmacy Instructions Status Indications Reaction Description Data Source(s) Triamcinolone Acetonide 0.001 MG/MG Topi marj Ointment Triamcinolone Acetonide 0.1 % Triamcinolone Acetonide 0.1 % 12/22/2020 12:00:00 AM EDT 1.0 {application} active Triamcinolone Aceton nury 0.1 % eCW1 ([facility]) Triamcinolone Acetonide 0.001 MG/MG Topi marj Ointment Triamcinolone Acetonide 0.1 % Triamcinolone Acetonide 0.1 % 12/22/2020 12:00:00 AM EDT 1.0 {application} active Triamcinolone Aceton nury 0.1 % eCW1 ([facility]) Omeprazole 20 MG Delayed Release Oral Capsule Omeprazole 20 MG 12/18/2019 12:00:00 AM EDT suspended Omepr azole 20 MG eCW1 ([facility]) Biotin 1 MG Oral Tablet Biotin 1000 MCG Biotin 1000 MCG 12/18/2019 12:00:00 AM EDT 1.0 {tablet} active Biotin 1000 MCG eCW1 ([facility]) Omeprazole 20 MG Delayed Release Oral Capsule Omeprazole 20 MG 12/18/2019 12:00:00 AM EDT active Omeprazo le 20 MG eCW1 ([facility]) Omeprazole 20 MG Delayed Release Oral Capsule Omeprazole 20 MG 12/18/2019 12:00:00 AM EDT active Omeprazo le 20 MG eCW1 ([facility]) Biotin 1 MG Oral Tablet Biotin 1000 MCG Biotin 1000 MCG 12/18/2019 12:00:00 AM EDT 1.0 {tablet} active Biotin 1000 MCG eCW1 ([facility]) Omeprazole 20 MG Delayed Release Oral Capsule Omeprazole 20 MG 12/18/2019 12:00:00 AM EDT active Omeprazo le 20 MG eCW1 ([facility]) Biotin 1 MG Oral Tablet Biotin 1000 MCG Biotin 1000 MCG 12/18/2019 12:00:00 AM EDT 1.0 {tablet} active Biotin 1000 MCG eCW1 ([facility]) Biotin 1 MG Oral Tablet Biotin 1000 MCG Biotin 1000 MCG 12/18/2019 12:00:00 AM EDT 1.0 {tablet} active Biotin 1000 MCG eCW1 ([facility]) Biotin 1 MG Oral Tablet Biotin 1000 MCG Biotin 1000 MCG 12/18/2019 12:00:00 AM EDT 1.0 {tablet} active Biotin 1000 MCG eCW1 ([facility]) Biotin 1 MG Oral Tablet Biotin 1000 MCG Biotin 1000 MCG 12/18/2019 12:00:00 AM EDT 1.0 {tablet} active Biotin 1000 MCG eCW1 ([facility]) Omeprazole 20 MG Delayed Release Oral Capsule Omeprazole 20 MG 12/18/2019 12:00:00 AM EDT active Omeprazo le 20 MG eCW1 ([facility]) Omeprazole 20 MG Delayed Release Oral Capsule Omeprazole 20 MG 12/18/2019 12:00:00 AM EDT active Omeprazo le 20 MG eCW1 ([facility]) Biotin 1 MG Oral Tablet Biotin 1000 MCG Biotin 1000 MCG 12/18/2019 12:00:00 AM EDT 1.0 {tablet} active Biotin 1000 MCG eCW1 ([facility]) Biotin 1 MG Oral Tablet Biotin 1000 MCG Biotin 1000 MCG 12/18/2019 12:00:00 AM EDT 1.0 {tablet} active Biotin 1000 MCG eCW1 ([facility]) Omeprazole 20 MG Delayed Release Oral Capsule Omeprazole 20 MG 12/18/2019 12:00:00 AM EDT active Omeprazo le 20 MG eCW1 ([facility]) Biotin 1 MG Oral Tablet Biotin 1000 MCG Biotin 1000 MCG 12/18/2019 12:00:00 AM EDT 1.0 {tablet} active Biotin 1000 MCG eCW1 ([facility]) Biotin 1 MG Oral Tablet Biotin 1000 MCG Biotin 1000 MCG 12/18/2019 12:00:00 AM EDT 1.0 {tablet} active Biotin 1000 MCG eCW1 ([facility]) Omeprazole 20 MG Delayed Release Oral Capsule Omeprazole 20 MG 12/18/2019 12:00:00 AM EDT active Omeprazo le 20 MG eCW1 ([facility]) Omeprazole 20 MG Delayed Release Oral Capsule Omeprazole 20 MG 12/18/2019 12:00:00 AM EDT suspended Omepr azole 20 MG eCW1 ([facility]) Omeprazole 20 MG Delayed Release Oral Capsule Omeprazole 20 MG 12/18/2019 12:00:00 AM EDT active Omeprazo le 20 MG eCW1 ([facility]) Omeprazole 20 MG Delayed Release Oral Capsule Omeprazole 20 MG 12/18/2019 12:00:00 AM EDT active Omeprazo le 20 MG eCW1 ([facility]) Biotin 1 MG Oral Tablet Biotin 1000 MCG Biotin 1000 MCG 12/18/2019 12:00:00 AM EDT 1.0 {tablet} active Biotin 1000 MCG eCW1 ([facility]) Insurance Providers Payer name Policy type / Coverage type Policy ID Covered republican ID Covered republican's relationship to nieto Policy Nieto Plan Information [id number] [facility] HMO/PPO/POS [id number] EXCELLUS H [id number] Self [id number] [place]/307 [id number] SP [id number] [place]/307 [id number] SP [id number] [place] 302/307 [id number] SP [id number] B/S BLUE PPO/HSA (33) [id number] MEDICARE [id number] SP [id number] T MEDICARE SECOND PAYER (88) [id number] 1 [id number] [facility]PP[facility]POS [id number] B/S BLUE PPO/HSA (33) [id number] EXCELLUS H [id number] Spouse [id number] [place] P[place] 302/307 [id number] [place] 302/307 [id number] SP [id number] [place] 306/806 [id number] [id number] EXCELLUS BCBS B [id number] S [id number] [place] 306/806 [id number] SP [id number] [place] 306/806 [id number] SP [id number] [place] 306/806 [id number] UNK2 [id number] [place] 302/307 [id number] SP [id number] SELF PAY ONLY UNAVAILABLE SP UNAV AILABLE BS Of [place] Health Maintenance Organization (HMO) [id number] Self SPECIAL ACCOUNT (8) UNAVAILABLE UNAVAILABLE MEDICARE [id number] SP [id number] T Problems, Conditions, and Diagnoses Code Display Name Description Problem Type Effective Dates Data Source(s) U07.1 [id number] COVID-19 Problem 12/28/2020 12:00: 00 AM EDT eCW1 ([facility]) L81.4 [id number] Lentigines Problem 12/22/2020 12:00:00 AM ED T eCW1 ([facility]) L91.8 [id number] Skin tag Problem 12/22/2020 12:00:00 AM ED T eCW1 ([facility]) L82.0 130014252 Seborrheic keratoses, inflamed Problem 12/22/2020 12:00:00 AM EDT eCW1 ([facility]) L82.1 [id number] Seborrheic keratoses Problem 12/22/2020 12:0 0:00 AM EDT eCW1 ([facility]) D22.9 041032099 Melanocytic nevus of skin Problem 12/22/2020 12:00:00 AM EDT eCW1 ([facility]) L28.0 82099185 Lichen simplex chronicus Problem 12/22/2020 12:00:00 AM EDT eCW1 ([facility]) D18.01 2792093 Mays angioma Problem 12/22/2020 12:00:00 A M EDT eCW1 ([facility]) L57.0 240542560 Actinic keratosis Problem 12/22/2020 12:00:0 0 AM EDT eCW1 ([facility]) Z12.83 806225282 Skin cancer screening Problem 12/22/2020 12: 00:00 AM EDT eCW1 ([facility]) 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 3403070 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 12:00:00 AM EDT eCW1 ([facility]) Z94.0 236447190 Renal transplant recipient Problem 12:00:00 AM EDT eCW1 ([facility]) G47.9 14488327 Sleep disturbance Problem 12/18/2019 12:00:0 0 AM EDT eCW1 ([facility]) E53.8 813216894 Biotin deficiency disease Problem 12/18/2019 12:00:00 AM EDT eCW1 ([facility]) Surgeries/Procedures No Information Results ID Date Data Source FERRITIN 12/29/2020 12:00:00 AM EDT eCW1 ([facility]) Name Value Range Interpretation Code Description Data Isabella rce(s) Supporting Document(s) 48 3-065 FERRITIN eCW1 ([facility]) ID Date Data Source DDIMER QUANT 12/29/2020 12:00:00 AM EDT eCW1 ([facility]) Name Value Range Interpretation Code Description Data Isabella rce(s) Supporting Document(s) 1407.80 <500 D-DIMER QUANT eCW1 ([facility]) ID Date Data Source C REACTIVE PROTEIN QUANTITATIV (At [facility]) 12/29/2020 12:00 :00 AM EDT eCW1 ([facility]) Name Value Range Interpretation Code Description Data Isabella rce(s) Supporting Document(s) 0.30 0.00-0.30 C REACTIVE PROTEIN QUANTI TATIV eCW1 ([facility]) ID Date Data Source Comprehensive Metabolic Profile (CMP) 12/29/2020 12:00:00 AM EDT eCW1 ([facility]) Name Value Range Interpretation Code Description Data Isabella rce(s) Supporting Document(s) 18 7-18 BLOOD UREA NITROGEN eCW1 ([facility]) 1.12 0.55-1.30 CREATININE FOR GFR eCW1 ([facility]) 101 70-100 GLUCOSE, FASTING eCW1 ([facility]) 103 98-107 CHLORIDE LEVEL eCW1 ([facility]) 53.0 >51 GLOMERULAR FILTRATION RATE eCW 1 ([facility]) 4.2 3.5-5.1 POTASSIUM SERUM eCW1 ([facility]) 136 136-145 SODIUM LEVEL eCW1 ([facility]) 18 7-37 AST/SGOT eCW1 ([facility]) 24 12-78 ALT/SGPT eCW1 ([facility]) 9.0 8.5-10.1 CALCIUM LEVEL eCW1 ([facility]) 29 21-32 CARBON DIOXIDE LEVEL eCW1 ([facility]) 0.4 0.2-1.0 BILIRUBIN,TOTAL eCW1 ([facility]) 6.7 6.4-8.2 TOTAL PROTEIN eCW1 ([facility]) 65 45-117 ALKALINE PHOSPHATASE eCW1 ([facility]) 3.6 3.2-5.2 ALBUMIN eCW1 ([facility]) 1.2 1.2-2.2 ALBUMIN/GLOBULIN RATIO eCW1 ([facility]) ID Date Data Source CBC - Complete Blood Count 12/29/2020 12:00:00 AM EDT eCW1 ( [facility]) Name Value Range Interpretation Code Description Data Isabella rce(s) Supporting Document(s) 3.2 4.0-10.0 WHITE BLOOD COUNT eCW1 ([facility]) 4.44 4.00-5.40 RED BLOOD COUNT eCW1 ([facility]) 37.1 36.0-47.0 HEMATOCRIT eCW1 ([facility]) 12.0 12.0-15.5 HEMOGLOBIN eCW1 ([facility]) 13.5 11.5-14.5 RED CELL DISTRIBUTION WID TH eCW1 ([facility]) 32.3 32.0-36.5 MEAN CORPUSCULAR HGB CONC eCW1 ([facility]) 27.0 27.0-33.0 MEAN CORPUSCULAR HEMOGLOB IN eCW1 ([facility]) 83.6 80.0-96.0 MEAN CORPUSCULAR VOLUME e CW1 ([facility]) 186 150-450 PLATELET COUNT, AUTOMATED eCW1 ([facility]) ID Date Data Source [id number] 11/29/2020 06:00:00 PM EDT [facility] Name Value Range Interpretation Code Description Data Isabella rce(s) Supporting Document(s) SARS coronavirus 2 RNA [Presence] in Res piratory specimen by MARII with probe detection POSITIVE [facility] This lab was ordered by [facility] a nd reported by [facility]. ID Date Data Source ADM CHEST 2 VIEW 12/23/2019 01:05:05 PM EDT eCW1 ([facility]) Name Value Range Interpretation Code Description Data Isabella rce(s) Supporting Document(s) ADM CHEST 2 VIEW eCW1 ([facility]) Procedure Social History Code Duration Value Status Description Data Source(s ) Smoking 12/28/2020 12:00:00 AM EDT Never Smoker completed Never S moker eCW1 ([facility]) Smoking 12/22/2020 12:00:00 AM EDT Never Smoker completed Never S moker eCW1 ([facility]) Smoking 09/23/2020 12:00:00 AM EDT Never Smoker completed Never S moker eCW1 ([facility]) Smoking 09/23/2020 12:00:00 AM EDT Never Smoker completed Never S moker eCW1 ([facility]) Smoking 09/23/2020 12:00:00 AM EDT Never Smoker completed Never S moker eCW1 ([facility]) Smoking 09/23/2020 12:00:00 AM EDT Never Smoker completed Never S moker eCW1 ([facility]) Smoking 09/23/2020 12:00:00 AM EDT Never Smoker completed Never S moker eCW1 ([facility]) Smoking 12/18/2019 12:00:00 AM EDT Never Smoker completed Never S moker eCW1 ([facility]) Smoking 12/18/2019 12:00:00 AM EDT Never Smoker completed Never S moker eCW1 ([facility]) Smoking 12/18/2019 12:00:00 AM EDT Never Smoker completed Never S moker eCW1 ([facility]) Smoking 12/18/2019 12:00:00 AM EDT Never Smoker completed Never S moker eCW1 ([facility]) Vital Signs ID Date Data Source UNK Name Value Range Interpretation Code Description Data Source(s) Body weight 154 [lb_av] 154 [lb_av] eCW1 ([facility]) Body height 68 [in_i] 68 [in_i] eCW1 ([facility]) Body mass index (BMI) [Ratio] 23.41 kg/m2 23.41 kg/m2 eCW1 ([facility]) Heart rate 94 /min 94 /min eCW1 ([facility]) Respiratory rate 20 /min 20 /min eCW1 ([facility]) Body temperature 97.5 [degF] 97.5 [degF] eCW1 ( [facility]) Systolic blood pressure 116 mm[Hg] 116 mm[Hg] e CW1 ([facility]) Diastolic blood pressure 66 mm[Hg] 66 mm[Hg] eCW1 ([facility]) Diastolic blood pressure 76 mm[Hg] 76 mm[Hg] eCW1 ([facility]) Body weight 155.6 [lb_av] 155.6 [lb_av] eCW1 ([facility]) Body weight 70.58 kg 70.58 kg eCW1 ([facility]) Body height 68 [in_i] 68 [in_i] eCW1 ([facility]) Body mass index (BMI) [Ratio] 23.66 kg/m2 23.66 kg/m2 eCW1 ([facility]) Systolic blood pressure 122 mm[Hg] 122 mm[Hg] e CW1 ([facility]) Body weight 155 [lb_av] 155 [lb_av] eCW1 ([facility]) Body height [in_i] eCW1 ([facility]) Body mass index (BMI) [Ratio] 23.57 kg/m2 23.57 kg/m2 eCW1 ([facility]) Heart rate 98 /min 98 /min eCW1 ([facility]) Respiratory rate 18 /min 18 /min eCW1 ([facility]) Body temperature 96.9 [degF] 96.9 [degF] eCW1 ( [facility]) Systolic blood pressure 116 mm[Hg] 116 mm[Hg] e CW1 ([facility]) Diastolic blood pressure 60 mm[Hg] 60 mm[Hg] eCW1 ([facility]) Body weight 155 [lb_av] 155 [lb_av] eCW1 ([facility]) Body mass index (BMI) [Ratio] 23.57 kg/m2 23.57 kg/m2 eCW1 ([facility]) Heart rate 101 /min 101 /min eCW1 ([facility]) Respiratory rate 18 /min 18 /min eCW1 ([facility]) Body height [in_i] eCW1 ([facility]) Body temperature 97.6 [degF] 97.6 [degF] eCW1 ( [facility]) Systolic blood pressure 110 mm[Hg] 110 mm[Hg] e CW1 ([facility]) Diastolic blood pressure 68 mm[Hg] 68 mm[Hg] eCW1 ([facility]) Patient Treatment Plan of Care Planned Activity Planned Date Details Description Data Source (s) Triamcinolone Acetonide 0.001 MG/MG Topical Ointment 021 12:00:00 AM EDT eCW1 ([facility]) Omeprazole 20 MG Delayed Release Oral Capsule 12/18/2019 12:00:00 A M EDT eCW1 ([facility]) Biotin 1 MG Oral Tablet 12/18/2019 12:00:00 AM EDT eCW1 ([facility]) Omeprazole 20 MG Delayed Release Oral Capsule 12/18/2019 12:00:00 A M EDT eCW1 ([facility]) Biotin 1 MG Oral Tablet 12/18/2019 12:00:00 AM EDT eCW1 ([facility]) Omeprazole 20 MG Delayed Release Oral Capsule 12/18/2019 12:00:00 A M EDT eCW1 ([facility]) Biotin 1 MG Oral Tablet 12/18/2019 12:00:00 AM EDT eCW1 ([facility]) Omeprazole 20 MG Delayed Release Oral Capsule 12/18/2019 12:00:00 A M EDT eCW1 ([facility]) Biotin 1 MG Oral Tablet 12/18/2019 12:00:00 AM EDT eCW1 ([facility])
== END 2021-01-09 16:10 | disposition left against medical advice (07) ==
LOC: M ED 14:42
DX: Z53.21 Procedure and treatment not carried out due to patient leaving prior to being seen by health care provider (principal)

== ENCOUNTER → 2021-01-12 | Outpatient (CLI) | payer BC ==
[~2021-01-12] MED LIST changes: -ACETAMINOPHEN TAB 650MG DOSE (2X325MG) PO PRN; -ALBUTEROL 90 MCG/ACT 8GM HFA INHALER INH PRN; -ALBUTEROL SULFATE 2.5 MG/0.5 ML INH NEB SOLN INH PRN; -EPINEPHrine INJ 1 MG/ML 1ML AMP IM PRN; +MYCO500T; -NS 1,000 ML IV SCH; +TACR1CAP3; -diphenhydrAMINE 50MG/ML VIAL (J1200) IV PRN; -methylPREDNISolone 125MG 2ML VIAL IV PRN
[2021-01-12 10:49] LABS: APPEARANCE, URINE CLEAR (CLEAR); BACTERIA, URINE AUTO NEGATIVE (NEGATIVE); BILIRUBIN, URINE AUTO NEGATIVE (NEGATIVE); BLOOD, URINE BLOOD NEGATIVE (NEGATIVE); COLOR, URINE STRAW (YELLOW); GLUCOSE, URINE (UA) AUTO NEGATIVE (NEGATIVE); KETONE, URINE AUTO NEGATIVE (NEGATIVE); LEUKOCYTE ESTERASE, URINE AUTO NEGATIVE (NEGATIVE); NITRITE, URINE AUTO NEGATIVE (NEGATIVE); PROTEIN, URINE AUTO NEGATIVE (NEGATIVE); RBC, URINE AUTO 0 /HPF (0-3); SPECIFIC GRAVITY URINE AUTO 1.003 (1.002-1.035); SQUAMOUS EPITHELIAL CELL UR AU 0 /HPF (0-6); UROBILINOGEN, URINE AUTO 0.2 mg/dL (0.0-2.0); WBC, URINE AUTO 0 /HPF (0-3)
[2021-01-12 10:55] LABS: BASO % 1.1 % (0.0-1.0); EOS # 0.1 10^3/uL (0.0-0.5); EOS % 3.3 % (0.0-3.0); HEMATOCRIT 37.8 % (36.0-47.0); HEMOGLOBIN 11.8 g/dl (12.0-15.5); LYMPH # 1.1 10^3/uL (1.5-5.0); LYMPH % 39.3 % (24.0-44.0); MEAN CORPUSCULAR HEMOGLOBIN 26.5 pg (27.0-33.0); MEAN CORPUSCULAR HGB CONC 31.2 g/dl (32.0-36.5); MEAN CORPUSCULAR VOLUME 84.8 fl (80.0-96.0); MONO # 0.3 10^3/uL (0.0-0.8); MONO % 10.4 % (2.0-8.0); NEUTROPHILS # 1.2 10^3/uL (1.5-8.5); NEUTROPHILS % 45.9 % (36.0-66.0); PLATELET COUNT, AUTOMATED 190 10^3/uL (150-450); RED BLOOD COUNT 4.46 10^6/uL (4.00-5.40); WHITE BLOOD COUNT 2.7 10^3/uL (4.0-10.0)
[2021-01-12 11:14] LABS: CALCIUM LEVEL 9.1 MG/DL (8.5-10.1); CREATININE FOR GFR 1.18 MG/DL (0.55-1.30); GLOMERULAR FILTRATION RATE 49.9 (>51); POTASSIUM SERUM 4.5 MEQ/L (3.5-5.1)
[2021-01-12 11:26] LABS: CREATININE,RANDOM URINE 24.1 MG/DL; PTH INTACT 29.8 PG/ML (18.5-88.0); TOTAL 25(OH) VITAMIN D 31.9 NG/ML (30.0-100.0); TOTAL PROTEIN,RANDOM URINE < 5.0 MG/DL (0.0-12.0)
== END ==
LOC: M PLALAB 08:36
PROVIDERS: ATTEND Registered Nurse
DX: N18.30 Chronic kidney disease, stage 3 unspecified (principal)

== ENCOUNTER → 2021-01-26 | Outpatient (CLI) | payer BC ==
[2021-01-26 10:50] LABS: APPEARANCE, URINE CLEAR (CLEAR); BACTERIA, URINE AUTO NEGATIVE (NEGATIVE); BILIRUBIN, URINE AUTO NEGATIVE (NEGATIVE); BLOOD, URINE BLOOD NEGATIVE (NEGATIVE); COLOR, URINE YELLOW (YELLOW); GLUCOSE, URINE (UA) AUTO NEGATIVE (NEGATIVE); KETONE, URINE AUTO NEGATIVE (NEGATIVE); LEUKOCYTE ESTERASE, URINE AUTO NEGATIVE (NEGATIVE); NITRITE, URINE AUTO NEGATIVE (NEGATIVE); PROTEIN, URINE AUTO NEGATIVE (NEGATIVE); RBC, URINE AUTO 0 /HPF (0-3); SPECIFIC GRAVITY URINE AUTO 1.006 (1.002-1.035); SQUAMOUS EPITHELIAL CELL UR AU 0 /HPF (0-6); UROBILINOGEN, URINE AUTO 0.2 mg/dL (0.0-2.0); WBC, URINE AUTO 0 /HPF (0-3)
[2021-01-26 10:51] LABS: EOS # 0.1 10^3/uL (0.0-0.5); EOS % 4.2 % (0.0-3.0); HEMATOCRIT 36.8 % (36.0-47.0); HEMOGLOBIN 11.8 g/dl (12.0-15.5); LYMPH # 1.3 10^3/uL (1.5-5.0); MEAN CORPUSCULAR HGB CONC 32.1 g/dl (32.0-36.5); MEAN CORPUSCULAR VOLUME 84.2 fl (80.0-96.0); MONO # 0.3 10^3/uL (0.0-0.8); MONO % 9.8 % (2.0-8.0); NEUTROPHILS # 1.1 10^3/uL (1.5-8.5); PLATELET COUNT, AUTOMATED 186 10^3/uL (150-450); RED BLOOD COUNT 4.37 10^6/uL (4.00-5.40); WHITE BLOOD COUNT 2.9 10^3/uL (4.0-10.0)
[2021-01-26 11:12] LABS: CALCIUM LEVEL 8.7 MG/DL (8.5-10.1); CREATININE FOR GFR 1.29 MG/DL (0.55-1.30); POTASSIUM SERUM 4.4 MEQ/L (3.5-5.1)
[2021-01-26 11:13] LABS: CREATININE,RANDOM URINE 35.8 MG/DL; TOTAL PROTEIN,RANDOM URINE 7.9 MG/DL (0.0-12.0)
[2021-01-26 11:23] LABS: PTH INTACT 58.3 PG/ML (18.5-88.0)
== END ==
LOC: M PLALAB 07:09
PROVIDERS: ATTEND Registered Nurse
DX: N18.30 Chronic kidney disease, stage 3 unspecified (principal); Z79.899 Other long term (current) drug therapy; Z94.0 Kidney transplant status; E55.9 Vitamin D deficiency, unspecified; N39.0 Urinary tract infection, site not specified; B34.9 Viral infection, unspecified

== ENCOUNTER → 2021-02-10 | Outpatient (CLI) | payer BC ==
[2021-02-10 11:17] LABS: BASO % 0.8 % (0.0-1.0); EOS # 0.1 10^3/uL (0.0-0.5); EOS % 4.2 % (0.0-3.0); HEMATOCRIT 39.2 % (36.0-47.0); HEMOGLOBIN 12.3 g/dl (12.0-15.5); LYMPH # 1.1 10^3/uL (1.5-5.0); LYMPH % 44.9 % (24.0-44.0); MEAN CORPUSCULAR HEMOGLOBIN 26.3 pg (27.0-33.0); MEAN CORPUSCULAR HGB CONC 31.4 g/dl (32.0-36.5); MEAN CORPUSCULAR VOLUME 83.9 fl (80.0-96.0); MONO # 0.2 10^3/uL (0.0-0.8); MONO % 8.1 % (2.0-8.0); PLATELET COUNT, AUTOMATED 190 10^3/uL (150-450); RED BLOOD COUNT 4.67 10^6/uL (4.00-5.40); WHITE BLOOD COUNT 2.4 10^3/uL (4.0-10.0)
[2021-02-10 11:41] LABS: CALCIUM LEVEL 9.2 MG/DL (8.5-10.1); CREATININE FOR GFR 1.26 MG/DL (0.55-1.30); GLOMERULAR FILTRATION RATE 46.3 (>51); POTASSIUM SERUM 4.5 MEQ/L (3.5-5.1)
[2021-02-10 12:08] LABS: PTH INTACT 31.1 PG/ML (18.5-88.0); TOTAL 25(OH) VITAMIN D 35.2 NG/ML (30.0-100.0)
[2021-02-10 14:16] LABS: APPEARANCE, URINE CLEAR (CLEAR); BACTERIA, URINE AUTO NEGATIVE (NEGATIVE); BILIRUBIN, URINE AUTO NEGATIVE (NEGATIVE); BLOOD, URINE BLOOD NEGATIVE (NEGATIVE); COLOR, URINE STRAW (YELLOW); GLUCOSE, URINE (UA) AUTO NEGATIVE (NEGATIVE); KETONE, URINE AUTO NEGATIVE (NEGATIVE); LEUKOCYTE ESTERASE, URINE AUTO NEGATIVE (NEGATIVE); NITRITE, URINE AUTO NEGATIVE (NEGATIVE); PROTEIN, URINE AUTO NEGATIVE (NEGATIVE); RBC, URINE AUTO 0 /HPF (0-3); SPECIFIC GRAVITY URINE AUTO 1.006 (1.002-1.035); SQUAMOUS EPITHELIAL CELL UR AU 0 /HPF (0-6); UROBILINOGEN, URINE AUTO 0.2 mg/dL (0.0-2.0); WBC, URINE AUTO 1 /HPF (0-3)
[2021-02-10 14:32] LABS: TOTAL PROTEIN,RANDOM URINE 6.3 MG/DL (0.0-12.0)
== END ==
LOC: M PLALAB 07:39
PROVIDERS: ATTEND Registered Nurse
DX: Z94.0 Kidney transplant status (principal)

== ENCOUNTER → 2021-05-20 | Outpatient (CLI) | payer BC ==
[2021-05-20 11:13] LABS: BASO % 1.4 % (0.0-1.0); EOS # 0.2 10^3/uL (0.0-0.5); EOS % 6.2 % (0.0-3.0); HEMATOCRIT 36.2 % (36.0-47.0); HEMOGLOBIN 11.6 g/dl (12.0-15.5); LYMPH # 1.1 10^3/uL (1.5-5.0); LYMPH % 38.8 % (24.0-44.0); MEAN CORPUSCULAR HEMOGLOBIN 26.6 pg (27.0-33.0); MONO # 0.3 10^3/uL (0.0-0.8); MONO % 8.6 % (2.0-8.0); NEUTROPHILS # 1.3 10^3/uL (1.5-8.5); NEUTROPHILS % 44.7 % (36.0-66.0); PLATELET COUNT, AUTOMATED 185 10^3/uL (150-450); RED BLOOD COUNT 4.36 10^6/uL (4.00-5.40); WHITE BLOOD COUNT 2.9 10^3/uL (4.0-10.0)
[2021-05-20 11:42] LABS: CREATININE,RANDOM URINE 27.7 MG/DL; TOTAL PROTEIN,RANDOM URINE < 5.0 MG/DL (0.0-12.0)
[2021-05-20 12:04] LABS: CREATININE FOR GFR 1.23 MG/DL (0.55-1.30); GLOMERULAR FILTRATION RATE 47.4 (>45); POTASSIUM SERUM 4.7 MEQ/L (3.5-5.1)
[2021-05-20 12:11] LABS: TOTAL 25(OH) VITAMIN D 32.8 NG/ML (30.0-100.0)
[2021-05-20 12:12] LABS: PTH INTACT 38.6 PG/ML (18.5-88.0)
== END ==
LOC: M PLALAB 07:03
PROVIDERS: ATTEND Registered Nurse
DX: N18.30 Chronic kidney disease, stage 3 unspecified (principal); Z94.0 Kidney transplant status; N39.0 Urinary tract infection, site not specified; Z79.899 Other long term (current) drug therapy

== ENCOUNTER → 2021-07-21 | Outpatient (CLI) | payer BC ==
[2021-07-21 10:46] LABS: APPEARANCE, URINE CLEAR (CLEAR); BACTERIA, URINE AUTO NEGATIVE (NEGATIVE); BILIRUBIN, URINE AUTO NEGATIVE (NEGATIVE); BLOOD, URINE BLOOD NEGATIVE (NEGATIVE); COLOR, URINE STRAW (YELLOW); GLUCOSE, URINE (UA) AUTO NEGATIVE (NEGATIVE); KETONE, URINE AUTO NEGATIVE (NEGATIVE); LEUKOCYTE ESTERASE, URINE AUTO NEGATIVE (NEGATIVE); NITRITE, URINE AUTO NEGATIVE (NEGATIVE); PROTEIN, URINE AUTO NEGATIVE (NEGATIVE); RBC, URINE AUTO 0 /HPF (0-3); SPECIFIC GRAVITY URINE AUTO 1.008 (1.002-1.035); SQUAMOUS EPITHELIAL CELL UR AU 0 /HPF (0-6); UROBILINOGEN, URINE AUTO 0.2 mg/dL (0.0-2.0); WBC, URINE AUTO 0 /HPF (0-3)
[2021-07-21 10:49] LABS: BASO % 1.3 % (0.0-1.0); EOS # 0.2 10^3/uL (0.0-0.5); EOS % 4.7 % (0.0-3.0); HEMATOCRIT 38.8 % (36.0-47.0); HEMOGLOBIN 12.5 g/dl (12.0-15.5); LYMPH # 1.2 10^3/uL (1.5-5.0); LYMPH % 38.6 % (24.0-44.0); MEAN CORPUSCULAR HEMOGLOBIN 27.6 pg (27.0-33.0); MEAN CORPUSCULAR HGB CONC 32.2 g/dl (32.0-36.5); MEAN CORPUSCULAR VOLUME 85.7 fl (80.0-96.0); MONO # 0.3 10^3/uL (0.0-0.8); MONO % 8.2 % (2.0-8.0); NEUTROPHILS # 1.5 10^3/uL (1.5-8.5); NEUTROPHILS % 46.9 % (36.0-66.0); PLATELET COUNT, AUTOMATED 195 10^3/uL (150-450); RED BLOOD COUNT 4.53 10^6/uL (4.00-5.40); WHITE BLOOD COUNT 3.2 10^3/uL (4.0-10.0)
[2021-07-21 11:12] LABS: CALCIUM LEVEL 9.1 MG/DL (8.8-10.2); CREATININE FOR GFR 1.43 MG/DL (0.55-1.30); GLOMERULAR FILTRATION RATE 39.8 (>45); POTASSIUM SERUM 4.3 MEQ/L (3.5-5.1)
[2021-07-21 11:13] LABS: CREATININE,RANDOM URINE 49.7 MG/DL; TOTAL PROTEIN,RANDOM URINE < 5.0 MG/DL (0.0-12.0)
[2021-07-21 11:49] LABS: PTH INTACT 47.2 PG/ML (18.5-88.0); TOTAL 25(OH) VITAMIN D 28.1 NG/ML (30.0-100.0)
== END ==
LOC: M PLALAB 07:09
PROVIDERS: ATTEND Registered Nurse
DX: N18.30 Chronic kidney disease, stage 3 unspecified (principal); Z94.0 Kidney transplant status; Z79.899 Other long term (current) drug therapy; N39.0 Urinary tract infection, site not specified; E55.9 Vitamin D deficiency, unspecified; E34.9 Endocrine disorder, unspecified